=== PATIENT | female | born 1955 | race Caucasian/White ===

== ENCOUNTER → 2023-09-16 | Outpatient (CLI) | payer MEDICARE, OTHER, SELFPAY ==
--- OUTSIDE RECORDS SUMMARY | 2023-09-16 07:27 | XMS RPT_ITS | CCD ---
Author Name Unknown Address [id number] [place] [address] Organization [facility] Care Team Providers Care Newspaper Vendor Name Role Phone Jose Alejandro Unavailable Unavailable PROVIDER, UNKNOWN Unavailable Unavailable Zarrabi, Naa Unavailable Unavailable Adonay Machadoanak Primary Care Provider [phone] Rosa Machadok Primary Care Provider Khaitan, Kellen Unavailable Unavailable Zarrabi, Naa Unavailable Unavailable Zarrabi, Naa Unavailable Unavailable Khaitan, Kellen Unavailable Unavailable Farrier, Lary L Unavailable Unavailable Farrier, Lary Unavailable Unavailable Zarrabi, Naa Unavailable Unavailable Guardado, Marbella Unavailable Unavailable Zarrabi, Naa Unavailable Unavailable Patricia Wylie Primary Care Provider Adonay Machadoanak Primary Care Provider Adonay Machadoanak Primary Care Provider [phone] Zoierrabi Naa Unavailable Unavailable Unavailable Unavailable Unavailable Jax Boyd MD Primary Care Provider Naa Machado MD Primary Care Provider Naa Machado MD Unavailable [phone] Nadir PINZON, Carmen Unavailable Unavailable MD NAA MACHADO Primary Care Unavailable MD NAA MACHADO Attending Unavailable MD NAA MACHADO Referring Unavailable MD NAA MACHADO Primary Care Unavailable MD NAA MACHADO Attending Unavailable ZARRABI, MD JACOME Referring Unavailable ZARRABI, MD JACOME Primary Care Unavailable ZARRABI, MD JACOME Attending Unavailable ZARRABI, MD JACOME Referring Unavailable ZARRABI, MD JACOME Primary Care Unavailable ZARRABI, MD JACOME Attending Unavailable ZARRABI, MD JACOME Referring Unavailable ZARRABI, MD JACOME Primary Care Unavailable ZARRABI, MD JACOME Attending Unavailable ZARRABI, MD JACOME Referring Unavailable ZARRABI, MD JACOME Attending Unavailable ZARRABI, MD JACOME Referring Unavailable ZARRABI, MD JACOME Primary Care Unavailable ZARRABI, MD JACOME Attending Unavailable ZARRABI, MD JACOME Referring Unavailable ZARRABI, MD JACOME Primary Care Unavailable ZARRABI, MD JACOME Attending Unavailable ZARRABI, MD JACOME Referring Unavailable ZARRABI, MD JACOME Primary Care Unavailable KHAITAN, MD FOREMAN Attending Unavailable ZARRABI, MD JACOME Primary Care Unavailable KHAITAN, MD FOREMAN Attending Unavailable ZARRABI, MD JACOME Primary Care Unavailable ZARRABI, MD JACOME Primary Care Unavailable ZARRABI, MD JACOME Attending Unavailable ZARRABI, MD JACOME Referring Unavailable Zarrabi, Dr. Jacome Primary Care Unavailable Khaitan, Dr. Foreman Attending Unavailable ZARRABI, NAA Primary Care Unavailable Zarrabi, Dr. Jacome Referring Unavailable Zarrabi, Dr. Jacome Primary Care Unavailable Areli Arvizu Admitting Unavailable Areli Arvizu Attending Unavailable Zarrabi, Dr. Jacome Attending Unavailable Zarrabi, Dr. Jacome Primary Care Unavailable Zarrabi, Dr. Jacome Primary Care Unavailable Zarrabi, Dr. Jacome Attending Unavailable Zarrabi, Dr. Jacome Attending Unavailable Zarrabi, Dr. Jacome Referring Unavailable Zarrabi, Dr. Jacome Primary Care Unavailable JAX BOYD Primary Care Unavailable DMITRIY MORRISON Referring Unavaila ble DMITRIY MORRISON Attending Unavaila ble DMITRIY MORRISON Referring Unavaila JAX Puentes Primary Care Unavailable DMITRIY MORRISON Attending Unavaila ble DMITRIY MORRISON Admitting Unavaila ble MALU, JAX GERALDO Primary Care Unavailable ZARRABI, NAA Attending Unavailable ZARRABI, NAA Primary Care Unavailable ZARRABI, NAA Attending Unavailable ZARRABI, NAA Primary Care Unavailable ZARRABI, NAA Attending Unavailable ZARRABI, NAA Referring Unavailable ZARRABI, NAA Primary Care Unavailable ZARRABI, NAA Attending Unavailable ZARRABI, NAA Primary Care Unavailable ZARRABI, NAA Attending Unavailable ZARRABI, NAA Primary Care Unavailable MALU, JAX GERALDO Primary Care Unavailable DMITRIY MORRISON Admitting Unavaila ble DMITRIY MORRISON Referring Unavaila ble MALU, JAX GERALDO Primary Care Unavailable DMITRIY MORRISON Attending Unavaila ble MALU, JAX GERALDO Primary Care Unavailable DMITRIY MORRISON Attending Unavaila ble MARIA GUADALUPE EUGENE Attending Unavailable MALU, JAX GERALDO Primary Care Unavailable ZARRABI, NAA Admitting Unavailable ZARRABI, NAA Referring Unavailable MALU, JAX GERALDO Primary Care Unavailable DMITRIY MORRISON Attending Unavaila ble MALU, JAX GERALDO Primary Care Unavailable DMITRIY MORRISON Attending Unavaila ble TAVALLDANIIEMEARELI M Attending Unavailable ZARRABI, NAA Referring Unavailable ZARRABI, NAA Primary Care Unavailable TAVALLAEE ARELI M Attending Unavailable TAVALLAEE, ARELI M Referring Unavailable ZARRABI, NAA Primary Care Unavailable ZARRABI, NAA Referring Unavailable ZARRABI, NAA Primary Care Unavailable ZARRABI, NAA Referring Unavailable ZARRABI, NAA Primary Care Unavailable ZARRABI, NAA Referring Unavailable ZARRABI, NAA Primary Care Unavailable Allergies Allergy Classification Reported Allergen(s) Allergy Type Date of Onset Reaction(s) Facility Dairy (not specified as lactose intolerance) (2 sources) cow milk Food Allergy Nausea [facility] Work Phone: Mold Extract (2 sources) Mold Extract Drug Allergy Other [facility] Work Phone: Whey Proteins (2 sources) Whey Proteins Drug Allergy Hives [facility] Work Phone: (5 sources) Lactase / Lactobacillus acidophilus Drug Allergy 9 [place], [place] (5 sources) Seasonal allergy Propensity to adverse reactions to substance 9 [place], [place] (20 sources) Whey Proteins; Translations: [WHEY] Drug Allergy 9 Rash, Hives [place], [place] (20 sources) Mold Extract; Translations: [MOLD] Drug Allergy 3 Runny nose, Other (See Comments) [facility] Work Phone: (20 sources) Whey allergy to substance Hives [facility] DO Work Phone: (20 sources) cow milk; Translations: [MILK] Propensity to adverse reactions to food (disorder) [address] [facility] (3 sources) Seasonal allergy Propensity to adverse reactions 3 Itching [facility] (2 sources) Whey Propensity to adverse reactions to drug 9 [place], [place] (2 sources) Lactase; Translations: [Dairy Ease] Drug Allergy Abdominal pain, Diarrhea [facility] Work Phone: (12 sources) cow milk allergenic extract Drug Allergy 3 Nausea Only, Nausea and vomiting [facility] (10 sources) Pollen; Translations: [POLLEN EXTRACTS] Propensity to adverse reactions to drug 3 Other (See Comments) [facility] Medications Current Medications Medication Drug Class(es) Dates Sig (Normalized) Sig (Original) amLODIPine 5 mg oral tablet (20 sources) Dihydropyridine Calcium Channel Mauro Start: 07-03-2023 take 1 tablet by mouth once daily amLODIPine (Norvasc) 5 mg tablet Indications: Benign essential HTN Take 1 tablet by mouth once daily 90 tablet 3 07/03/2023 Active Completed/Discontinued Medications Medication Drug Class(es) Dates Sig (Normalized) Sig (Original) aspirin 81 mg delayed release oral tablet (20 sources) Platelet Aggregation Inhibitor, Nonsteroidal Anti-inflammatory Drug End: 06-28-2022 take 1 tablet by mouth once daily Aspirin EC Low Dose 81 MG Oral Tablet Delayed Release TAKE 1 TABLET DAILY. Quantity: 0 Refills: 0 Ordered: 28-Jun-2022 DO End : 28-Jun-2022 Complete Problems Active Problems Problem Classification Problem Date Documented Da te Episodic/Chronic Acquired foot deformities (18 sources) Hammer toe; Translations: [Other hammer toe(s) (acquired), right foot] Onset: 3 04-11-2023 Chronic Acquired foot deformities (5 sources) Bunion; Translations: [Bunion of right foot] Onset: 3 06-20-2023 Episodic Administrative/social admission (14 sources) Advance directive discussed with patient; Translations: [Other specified counseling] Episodic Allergic reactions (2 sources) Food allergy; Translations: [Allergy to other foods] Episodic Anal and rectal conditions (2 sources) Rectal pain; Translations: [Anal or rectal pain] Episodic Asthma (20 sources) Asthma; Translations: [Asthma, unspecified type, unspecified] Onset: 3 08-20-2022 Chronic Biliary tract disease (4 sources) Calculus of gallbladder without cholecystitis without obstruction; Translations: [Calculus of gallbladder with chronic cholecystitis without obstruction] Onset: 3 Episodic Cancer; other and unspecified primary (20 sources) Personal history of malignant neoplasm of other organs and systems; Translations: [History of squamous cell carcinoma] Episodic Complications of surgical procedures or medical care (1 source) Post-surgical malabsorption; Translations: [Other and unspecified postsurgical nonabsorption] Chronic Disorders of lipid metabolism (20 sources) Hyperlipidemia; Translations: [Other and unspecified hyperlipidemia] Onset: 3 08-20-2022 Chronic Esophageal disorders (20 sources) Gastro-esophageal reflux disease with esophagitis; Translations: [Gastroesophageal reflux disease] Onset: 2 Resolved: 0 05-12-2013 Chronic Esophageal disorders (10 sources) Esophagitis; Translations: [Esophagitis, unspecified] Episodic Essential hypertension (20 sources) Hypertensive disorder; Translations: [Benign essential hypertension] Onset: 2 10-18-2022 Chronic Gastritis and duodenitis (20 sources) Chronic gastritis; Translations: [Atrophic gastritis, without mention of hemorrhage] Onset: 3 10-18-2022 Chronic Gastritis and duodenitis (17 sources) Gastritis; Translations: [Unspecified gastritis and gastroduodenitis, without mention of hemorrhage] Episodic Genitourinary symptoms and ill-defined conditions (2 sources) Increased frequency of urination; Translations: [Urinary frequency] Episodic Immunizations and screening for infectious disease (1 source) Encounter for immunization; Translations: [Encounter for immunization] Onset: 3 Episodic Malaise and fatigue (2 sources) Fatigue; Translations: [Chronic fatigue, unspecified] 10-18-2022 Chronic Mycoses (1 source) Candidiasis of mouth; Translations: [Thrush, oral] Episodic Noninfectious gastroenteritis (20 sources) Chronic diarrhea; Translations: [Diarrhea] Onset: 3 Resolved: 3 10-18-2022 Episodic Nutritional deficiencies (10 sources) Iron deficiency; Translations: [Iron deficiency anemia, unspecified] Episodic Osteoarthritis (20 sources) Primary osteoarthritis of ankle; Translations: [Osteoarthrosis, localized, primary, ankle and foot] Onset: 3 08-20-2022 Chronic Other acquired deformities (1 source) Spondylolisthesis, grade 1; Translations: [Acquired spondylolisthesis] Episodic Other aftercare (1 source) Other meterman (current) drug therapy; Translations: [Other meterman (current) drug therapy] Onset: 3 Episodic Other connective tissue disease (14 sources) Spasm; Translations: [Spasm of muscle] Episodic Other connective tissue disease (15 sources) Foot pain; Translations: [Pain in limb] Episodic Other connective tissue disease (1 source) Trigger finger, unspecified finger; Translations: [Trigger finger, unspecified finger] Onset: 3 Episodic Other connective tissue disease (1 source) Trigger finger, right middle finger; Translations: [Trigger finger, right middle finger] Onset: 3 Episodic Other ear and sense organ disorders (1 source) Ear pressure sensation; Translations: [Pressure sensation in both ears] Episodic Other endocrine disorders (1 source) Reactive hypoglycemia; 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] Chronic Other endocrine disorders (5 sources) Hypoglycemia; Translations: [Hypoglycemia] Chronic Other gastrointestinal disorders (7 sources) Irritable bowel syndrome; Translations: [Mixed irritable bowel syndrome] Onset: 3 09-24-2022 Chronic Other gastrointestinal disorders (20 sources) History of bariatric surgical procedure; Translations: [Bariatric surgery status] Onset: 3 10-18-2022 Episodic Other gastrointestinal disorders (4 sources) Dysphagia; Translations: [Dysphagia] Episodic Other gastrointestinal disorders (3 sources) H/O: gastrointestinal disease; Translations: [History of dysphagia] Episodic Other gastrointestinal disorders (20 sources) Chronic constipation; Translations: [Constipation, unspecified] Episodic Other gastrointestinal disorders (6 sources) History of lower gastrointestinal bleed; Translations: [Personal history of other diseases of digestive system] Episodic Other gastrointestinal disorders (1 source) Dysphagia, unspecified; Translations: [Dysphagia, unspecified] Onset: 3 Episodic Other hereditary and degenerative nervous system conditions (6 sources) Idiopathic peripheral autonomic neuropathy; Translations: [Other idiopathic peripheral autonomic neuropathy] Onset: 3 04-11-2023 Chronic Other hereditary and degenerative nervous system conditions (3 sources) Other idiopathic peripheral autonomic neuropathy; Translations: [Other idiopathic peripheral autonomic neuropathy] Onset: 3 Chronic Other inflammatory condition of skin (2 sources) Pruritus ani; Translations: [Pruritus ani] Episodic Other injuries and conditions due to external causes (1 source) H/O: injury; Translations: [Personal history of other (healed) physical injury and trauma] 04-18-2023 Episodic Other liver diseases (20 sources) Steatosis of liver; Translations: [Other chronic nonalcoholic liver disease] Onset: 3 08-20-2022 Chronic Other liver diseases (1 source) Fatty (change of) liver, not elsewhere classified; Translations: [Fatty (change of) liver, not elsewhere classified] Onset: 3 Chronic Other lower respiratory disease (5 sources) Cough; Translations: [Cough] Episodic Other lower respiratory disease (3 sources) Dyspnea on exertion; Translations: [Shortness of breath] Episodic Other nervous system disorders (2 sources) Polyneuropathy, unspecified; Translations: [Polyneuropathy, unspecified] Onset: 8 Chronic Other nervous system disorders (20 sources) Mononeuropathy of lower limb; Translations: [Other mononeuritis of lower limb] Onset: 3 08-20-2022 Chronic Other nervous system disorders (20 sources) Numbness; Translations: [Disturbance of skin sensation] 10-22-2022 Episodic Other nervous system disorders (15 sources) Numbness of foot ; Translations: [Disturbance of skin sensation] Episodic Other nutritional; endocrine; and metabolic disorders (20 sources) Disorder of carbohydrate metabolism; 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] Onset: 3 08-20-2022 Chronic Other nutritional; endocrine; and metabolic disorders (20 sources) Obesity; Translations: [Obesity, unspecified] Chronic Other nutritional; endocrine; and metabolic disorders (1 source) Obesity, unspecified; Translations: [Obesity, unspecified] Onset: 3 Chronic Other nutritional; endocrine; and metabolic disorders (1 source) Body mass index (BMI) 30.0-30.9, adult; Translations: [Body mass index [BMI] 30.0-30.9, adult] Onset: 3 Chronic Other nutritional; endocrine; and metabolic disorders (2 sources) Other disorders of intestinal carbohydrate absorption; Translations: [Other disorders of intestinal carbohydrate absorption] Onset: 3 Chronic Other nutritional; endocrine; and metabolic disorders (1 source) Difficulty chewing; Translations: [Chewing difficulty] Episodic Other nutritional; endocrine; and metabolic disorders (2 sources) Decrease in appetite; Translations: [Anorexia] 06-20-2023 Episodic Other nutritional; endocrine; and metabolic disorders (4 sources) Anorexia; Translations: [Anorexia] Onset: 3 Episodic Other upper respiratory disease (4 sources) Allergic rhinitis; Translations: [Allergic rhinitis, unspecified] 05-12-2013 Chronic Other upper respiratory disease (3 sources) Rhinitis; Translations: [Chronic rhinitis] Chronic Other upper respiratory disease (8 sources) Nasal congestion; Translations: [Other disease of nasal cavity and sinuses] Episodic Residual codes; unclassified (5 sources) H/O: surgery; Translations: [S/P laparoscopic sleeve gastrectomy] Episodic Residual codes; unclassified (20 sources) Postmenopausal state; Translations: [Asymptomatic postmenopausal status (age-related) (natural)] 04-18-2023 Episodic Residual codes; unclassified (5 sources) Acquired absence of other specified parts of digestive tract; Translations: [Acquired absence of other specified parts of digestive tract] Onset: 2 Episodic Residual codes; unclassified (5 sources) Asymptomatic menopausal state; Translations: [Asymptomatic menopausal state] Onset: 2 Episodic Screening and history of mental health and substance abuse codes (20 sources) Screening - NAD; Translations: [Screening for depression] Onset: 3 Episodic Spondylosis; intervertebral disc disorders; other back problems (15 sources) Radiculopathy, lumbar region; Translations: [Radiculopathy, lumbosacral region] Onset: 8 04-11-2023 Episodic Thyroid disorders (20 sources) Non-toxic multinodular goiter; Translations: [Thyroid nodule] Onset: 3 08-20-2022 Chronic Unclassified (2 sources) History of COVID-19; Translations: [History of COVID-19] Onset: 3 08-20-2022 Unclassified (1 source) Contact with and (suspected) exposure to COVID-19; Translations: [Contact with and (suspected) exposure to COVID-19] Onset: 3 Unclassified (1 source) Gastro-esophageal reflux dis with esophagitis, without bleed; Translations: [Gastro-esophageal reflux dis with esophagitis, without bleed] Onset: 3 Urinary tract infections (5 sources) Acute cystitis; Translations: [Acute cystitis] Episodic Viral infection (3 sources) Disease caused by 2019-nCoV; Translations: [Other specified viral infection] Episodic Past or Other Problems Problem Classification Problem Date Documented Da te Episodic/Chronic Abdominal hernia (20 sources) Hiatal hernia; Translations: [Diaphragmatic hernia without mention of obstruction or gangrene] Onset: 08-20-2022 08-20-2022 Episodic Abdominal pain (20 sources) Left lower quadrant pain; Translations: [Abdominal pain, left lower quadrant] Onset: 05-03-2022 08-20-2022 Episodic Administrative/social admission (7 sources) Patient entered into trial; Translations: [Research study patient] Anxiety disorders (20 sources) Anxiety state; Translations: [Anxiety state, unspecified] Onset: 08-20-2022 Resolved: 04-18-2023 08-20-2022 Chronic Deficiency and other anemia (20 sources) Anemia; Translations: [Anemia, unspecified] Onset: 08-20-2022 08-20-2022 Episodic Deficiency and other anemia (19 sources) Iron deficiency anemia; Translations: [Iron deficiency anemia, unspecified] Onset: 08-20-2022 08-20-2022 Episodic Diabetes mellitus without complication (10 sources) Impaired fasting glycemia; Translations: [Impaired fasting glucose] Onset: 11-22-2022 11-22-2022 Episodic Gastrointestinal hemorrhage (14 sources) Hematochezia; Translations: [Blood in stool] Onset: 06-21-2022 Resolved: 10-18-2022 10-18-2022 Episodic Headache; including migraine (20 sources) Headache; Translations: [Headache] Onset: 08-20-2022 08-20-2022 Episodic Hemorrhoids (13 sources) Internal hemorrhoids; Translations: [Internal hemorrhoids without mention of complication] Onset: 06-21-2022 09-24-2022 Episodic Malaise and fatigue (20 sources) Fatigue; Translations: [Other malaise and fatigue] Onset: 08-20-2022 08-20-2022 Episodic Other connective tissue disease (20 sources) Triggering of digit; Translations: [Trigger finger (acquired)] Onset: 08-20-2022 08-20-2022 Episodic Other connective tissue disease (6 sources) Pain in both feet; Translations: [Pain in right foot] Onset: 08-20-2022 08-20-2022 Episodic Other connective tissue disease (2 sources) Pain in right foot; Translations: [Pain in right foot] Onset: 04-11-2023 Episodic Other connective tissue disease (2 sources) Pain in left foot; Translations: [Pain in left foot] Onset: 04-11-2023 Episodic Other eye disorders (20 sources) Excessive tear production; Translations: [Epiphora, unspecified as to cause] Onset: 08-20-2022 Resolved: 10-18-2022 10-18-2022 Episodic Other gastrointestinal disorders (20 sources) Irritable bowel syndrome with diarrhea; Translations: [Irritable bowel syndrome] Onset: 08-20-2022 Resolved: 09-24-2022 09-24-2022 Chronic Other gastrointestinal disorders (20 sources) Abdominal bloating; Translations: [Flatulence, eructation, and gas pain] Onset: 08-20-2022 Resolved: 11-22-2022 10-18-2022 Episodic Other gastrointestinal disorders (20 sources) Personal history of other diseases of the digestive system; Translations: [History of dysphagia] Resolved: 09-07-2019 Episodic Other gastrointestinal disorders (5 sources) Bariatric surgery status; Translations: [Bariatric surgery status] Onset: 06-21-2022 Episodic Other gastrointestinal disorders (2 sources) Diarrhea, unspecified; Translations: [Diarrhea, unspecified] Onset: 06-21-2022 Episodic Other gastrointestinal disorders (2 sources) Abdominal distension (gaseous); Translations: [Abdominal distension (gaseous)] Onset: 08-20-2022 Episodic Other gastrointestinal disorders (2 sources) Constipation, unspecified; Translations: [Constipation, unspecified] Onset: 09-24-2022 Episodic Other hematologic conditions (20 sources) Microcytosis; Translations: [Other abnormality of red blood cells] Onset: 08-20-2022 08-20-2022 Episodic Other infections; including parasitic (20 sources) Personal history of other infectious and parasitic diseases; Translations: [History of COVID-19] Onset: 08-20-2022 08-20-2022 Episodic Other injuries and conditions due to external causes (4 sources) Personal history of other (healed) physical injury and trauma; Translations: [Personal history of other (healed) physical injury and trauma] Onset: 04-18-2023 Episodic Other nervous system disorders (20 sources) Carpal tunnel syndrome; Translations: [Carpal tunnel syndrome] Resolved: 10-16-2019 Chronic Other nervous system disorders (7 sources) Paresthesia of foot ; Translations: [Anesthesia of skin] Onset: 08-20-2022 Episodic Other nervous system disorders (4 sources) Anesthesia of skin; Translations: [Anesthesia of skin] Onset: 09-24-2022 Episodic Other nervous system disorders (2 sources) Paresthesia of skin; Translations: [Paresthesia of skin] Onset: 09-24-2022 Episodic Other non-traumatic joint disorders (20 sources) Finger joint stiff; Translations: [Stiffness of joint, not elsewhere classified, hand] Onset: 08-20-2022 08-20-2022 Episodic Other non-traumatic joint disorders (5 sources) Pain in elbow; Translations: [Pain in left elbow] Onset: 04-18-2023 04-18-2023 Episodic Other non-traumatic joint disorders (4 sources) Pain in left elbow; Translations: [Pain in left elbow] Onset: 04-18-2023 Episodic Other nutritional; endocrine; and metabolic disorders (20 sources) Hypoproteinemia; Translations: [Other disorders of plasma protein metabolism] Onset: 08-20-2022 Resolved: 09-24-2022 09-24-2022 Chronic Other nutritional; endocrine; and metabolic disorders (20 sources) H/O: endocrine disorder; Translations: [Personal history of other endocrine, metabolic, and immunity disorders] Onset: 08-20-2022 Resolved: 10-21-2019 08-20-2022 Episodic Other nutritional; endocrine; and metabolic disorders (20 sources) Weight loss; Translations: [Loss of weight] Onset: 08-20-2022 08-20-2022 Episodic Other screening for suspected conditions (not mental disorders or infectious disease) (20 sources) Patient encounter status; Translations: [Breast screening, unspecified] Onset: 05-11-2022 04-18-2023 Episodic Residual codes; unclassified (20 sources) Past history of procedure; Translations: [Other specified personal history presenting hazards to health] Onset: 01-31-2018 Episodic Results Test Name Value Interpretation Reference Range Facil ity Vital Signs Date Time Vital Sign Value Performing Clinician Facility 08-02-2023 11:05-0500 Diastolic blood pressure 76 mm[Hg] [address] 08-02-2023 11:05-0500 Heart rate 62 /min [address] 08-02-2023 11:05-0500 Respiratory rate 20 /min [address] 08-02-2023 11:05-0500 SaO2% (BldA) [Mass fraction] 100 % [address] 08-02-2023 11:05-0500 Systolic blood pressure 124 mm[Hg] [address] 08-02-2023 10:18-0500 Body temperature 97.59 [degF] [address] 08-02-2023 09:22-0500 Body height [address] 08-02-2023 09:22-0500 Body mass index (BMI) [Ratio] 28.12 kg/m2 [address] 08-02-2023 09:22-0500 Body weight 74.7 kg [facility] 04 [facility] 08-01-2023 12:55-0500 Diastolic blood pressure 72 mm[Hg] Areli Arvizu MD Work Phone: [facility] 08-01-2023 12:55-0500 Heart rate 62 /min Areli Arvizu MD Work Phone: [facility] 08-01-2023 12:55-0500 Respiratory rate 16 /min Areli Arvizu MD Work Phone: [facility] 08-01-2023 12:55-0500 SaO2% (BldA) [Mass fraction] 96 % Areli Arvizu MD Work Phone: [facility] 08-01-2023 12:55-0500 Systolic blood pressure 116 mm[Hg] Areli Arvizu MD Work Phone: [facility] 08-01-2023 12:10-0500 Body temperature 97.5 [degF] Areli Arvizu MD Work Phone: [facility] 08-01-2023 10:41-0500 Body height 162.2 cm Areli Arvizu MD Work Phone: [facility] 08-01-2023 10:41-0500 Body mass index (BMI) [Ratio] 27.75 kg/m2 Areli Arvizu MD Work Phone: [facility] 08-01-2023 10:41-0500 Body weight 73 kg Areli Arvizu MD Work Phone: [facility] 07-25-2023 08:41-0500 Body temperature 98.2 [degF] Dmitriy Morrison DPM Work Phone: [facility] 07-25-2023 08:41-0500 Diastolic blood pressure 83 mm[Hg] Dmitriy Morrison DPM Work Phone: [facility] 07-25-2023 08:41-0500 Heart rate 98 /min Dmitriy Morrison DPM Work Phone: [facility] 07-25-2023 08:41-0500 Systolic blood pressure 122 mm[Hg] Dmitriy Morrison DPM Work Phone: [facility] 06-20-2023 10:27-0500 Body temperature 97.9 [degF] Dmitriy Morrison DPM Work Phone: [facility] 06-20-2023 10:27-0500 Diastolic blood pressure 78 mm[Hg] Dmitriy Morrison DPM Work Phone: [facility] 06-20-2023 10:27-0500 Heart rate 62 /min Dmitriy Morrison DPM Work Phone: [facility] 06-20-2023 10:27-0500 Systolic blood pressure 123 mm[Hg] Dmitriy Morrison DPM Work Phone: [facility] 06-20-2023 09:08-0500 Body height 160 cm Naa Machdao MD Work Phone: [facility] 06-20-2023 09:08-0500 Body mass index (BMI) [Ratio] 29.23 kg/m2 Naa Machado MD Work Phone: [facility] 06-20-2023 09:08-0500 Body weight 74.84 kg Naa Machado MD Work Phone: [facility] 06-20-2023 09:08-0500 Diastolic blood pressure 72 mm[Hg] Naa Machado MD Work Phone: [facility] 06-20-2023 09:08-0500 Heart rate 60 /min Naa Machado MD Work Phone: [facility] 06-20-2023 09:08-0500 Systolic blood pressure 124 mm[Hg] Naa Machado MD Work Phone: [facility] 05-09-2023 09:45-0400 Diastolic blood pressure 82 mm[Hg] Dmitriy Morrison DPM Work Phone: [facility] 05-09-2023 09:45-0400 Heart rate 59 /min Dmitriy Morrison DPM Work Phone: [facility] 05-09-2023 09:45-0400 Systolic blood pressure 132 mm[Hg] Dmitriy Morrison DPM Work Phone: [facility] 05-09-2023 09:42-0400 Body temperature 98.1 [degF] Dmitriy Morrison DPM Work Phone: [facility] 04-18-2023 08:05-0400 Body height 160 cm Naa Machado MD Work Phone: [facility] 04-18-2023 08:05-0400 Body mass index (BMI) [Ratio] 29.41 kg/m2 Naa Machado MD Work Phone: [facility] 04-18-2023 08:05-0400 Body weight 75.3 kg Naa Machado MD Work Phone: [facility] 04-18-2023 08:05-0400 Diastolic blood pressure 80 mm[Hg] Naa Machado MD Work Phone: [facility] 04-18-2023 08:05-0400 Heart rate 66 /min Naa Machado MD Work Phone: [facility] 04-18-2023 08:05-0400 SaO2% (BldA) [Mass fraction] 97 % Naa Machado MD Work Phone: [facility] 04-18-2023 08:05-0400 Systolic blood pressure 120 mm[Hg] Naa Machado MD Work Phone: [facility] 04-11-2023 09:32-0400 Body temperature 97.7 [degF] Dmitriy Morrison DPM Work Phone: [facility] 04-11-2023 09:32-0400 Diastolic blood pressure 88 mm[Hg] Dmitriy Morrison DPM Work Phone: [facility] 04-11-2023 09:32-0400 Heart rate 75 /min Dmitriy Morrison DPM Work Phone: [facility] 04-11-2023 09:32-0400 Systolic blood pressure 133 mm[Hg] Dmitriy Morrison DPM Work Phone: [facility] 11-22-2022 08:10-0400 Body height 160 cm Naa Machado MD Work Phone: [facility] 11-22-2022 08:10-0400 Body mass index (BMI) [Ratio] 30.29 kg/m2 Naa Machado MD Work Phone: [facility] 11-22-2022 08:10-0400 Body weight 77.56 kg Naa Machado MD Work Phone: [facility] 11-22-2022 08:10-0400 Diastolic blood pressure 80 mm[Hg] Naa Machado MD Work Phone: [facility] 11-22-2022 08:10-0400 Heart rate 64 /min Naa Machado MD Work Phone: [facility] 11-22-2022 08:10-0400 Systolic blood pressure 122 mm[Hg] Naa Machado MD Work Phone: [facility] 10-18-2022 08:21-0400 Body height 160 cm Naa Machado MD Work Phone: [facility] 10-18-2022 08:21-0400 Body mass index (BMI) [Ratio] 31.18 kg/m2 Naa Machado MD Work Phone: [facility] 10-18-2022 08:21-0400 Body weight 79.83 kg Naa Machado MD Work Phone: [facility] 10-18-2022 08:21-0400 Diastolic blood pressure 68 mm[Hg] Naa Machado MD Work Phone: [facility] 10-18-2022 08:21-0400 Heart rate 73 /min Naa Machado MD Work Phone: [facility] 10-18-2022 08:21-0400 SaO2% (BldA) [Mass fraction] 98 % Naa Machado MD Work Phone: [facility] 10-18-2022 08:21-0400 Systolic blood pressure 112 mm[Hg] Naa Machado MD Work Phone: [facility] 08-23-2022 10:56-0500 Body height 160.02 cm Naa Machado Work Phone: [facility] Work Phone: 08-23-2022 10:56-0500 Body mass index (BMI) [Ratio] 31.35 kg/m2 Naa Machado Work Phone: [facility] Work Phone: 08-23-2022 10:56-0500 Body surface area Derived from formula 1.84 m2 Naa Machado Work Phone: [facility] Work Phone: 08-23-2022 10:56-0500 Body weight 80.29 kg Naaskye Machado Work Phone: [facility] Work Phone: 08-23-2022 10:56-0500 Diastolic blood pressure 68 mm[Hg] Naa Machado Work Phone: [facility] Work Phone: 08-23-2022 10:56-0500 Heart rate 60 /min Naa Machado Work Phone: [facility] Work Phone: 08-23-2022 10:56-0500 SaO2% (BldA) [Mass fraction] 98 % Naa Machado Work Phone: [facility] Work Phone: 08-23-2022 10:56-0500 Systolic blood pressure 120 mm[Hg] Naa Machado Work Phone: [facility] Work Phone: 06-28-2022 08:54-0500 Body height 160.02 cm Naa Machado Work Phone: [facility] Work Phone: 06-28-2022 08:54-0500 Body mass index (BMI) [Ratio] 31.89 kg/m2 Naa Machado Work Phone: [facility] Work Phone: 06-28-2022 08:54-0500 Body surface area Derived from formula 1.85 m2 Naa Machado Work Phone: [facility] Work Phone: 06-28-2022 08:54-0500 Body weight 81.65 kg Naa Machado Work Phone: [facility] Work Phone: 06-28-2022 08:54-0500 Diastolic blood pressure 82 mm[Hg] Naa Fraserabi Work Phone: [facility] Work Phone: 06-28-2022 08:54-0500 Diastolic blood pressure 80 mm[Hg] Naa Fraserabi Work Phone: [facility] Work Phone: 06-28-2022 08:54-0500 Heart rate 68 /min Naa Fraserabi Work Phone: [facility] Work Phone: 06-28-2022 08:54-0500 Systolic blood pressure 132 mm[Hg] Naa Linorrabi Work Phone: [facility] Work Phone: 06-28-2022 08:54-0500 Systolic blood pressure 130 mm[Hg] Naa Zarrabi Work Phone: [facility] Work Phone: 05-28-2022 08:56-0500 Body height 160.02 cm Naa Fraserabi Work Phone: [facility] Work Phone: 05-28-2022 08:56-0500 Body mass index (BMI) [Ratio] 31.71 kg/m2 Naa Linorrabi Work Phone: [facility] Work Phone: 05-28-2022 08:56-0500 Body surface area Derived from formula 1.84 m2 Naa Fraserabi Work Phone: [facility] Work Phone: 05-28-2022 08:56-0500 Body weight 81.19 kg Naa Fraserabi Work Phone: [facility] Work Phone: 05-28-2022 08:56-0500 Diastolic blood pressure 80 mm[Hg] Naa Zarrabi Work Phone: [facility] Work Phone: 05-28-2022 08:56-0500 Systolic blood pressure 129 mm[Hg] Naa Zarrabi Work Phone: [facility] Work Phone: 05-17-2022 08:40-0400 Body height 160.02 cm Naa Linorrabi Work Phone: [facility] Work Phone: 05-17-2022 08:40-0400 Body mass index (BMI) [Ratio] 31.71 kg/m2 Naa Fraserabi Work Phone: [facility] Work Phone: 05-17-2022 08:40-0400 Body surface area Derived from formula 1.84 m2 Naa Zarrabi Work Phone: [facility] Work Phone: 05-17-2022 08:40-0400 Body weight 81.19 kg Naacate Machado Work Phone: [facility] Work Phone: 05-17-2022 08:40-0400 Diastolic blood pressure 80 mm[Hg] Naa Fraserabi Work Phone: [facility] Work Phone: 05-17-2022 08:40-0400 Heart rate 64 /min Naacate Machado Work Phone: [facility] Work Phone: 05-17-2022 08:40-0400 Systolic blood pressure 138 mm[Hg] Naa Machado Work Phone: [facility] Work Phone: 04-26-2022 08:48-0400 Body height 160.02 cm Naa Machado Work Phone: [facility] Work Phone: 04-26-2022 08:48-0400 Body mass index (BMI) [Ratio] 31.89 kg/m2 Naa Fraserabi Work Phone: [facility] Work Phone: 04-26-2022 08:48-0400 Body surface area Derived from formula 1.85 m2 Naa Fraserabi Work Phone: [facility] Work Phone: 04-26-2022 08:48-0400 Body weight 81.64 kg Naa Fraserabi Work Phone: [facility] Work Phone: 04-26-2022 08:48-0400 Diastolic blood pressure 82 mm[Hg] Naa Fraserabi Work Phone: [facility] Work Phone: 04-26-2022 08:48-0400 Heart rate 64 /min Naa Fraserabi Work Phone: [facility] Work Phone: 04-26-2022 08:48-0400 Systolic blood pressure 138 mm[Hg] Naa Fraserabi Work Phone: [facility] Work Phone: 03-15-2022 08:21-0400 Body height 160.02 cm Naa Machado Work Phone: [facility] Work Phone: 03-15-2022 08:21-0400 Body mass index (BMI) [Ratio] 32.06 kg/m2 Naa Fraserabi Work Phone: [facility] Work Phone: 03-15-2022 08:21-0400 Body surface area Derived from formula 1.85 m2 Naa Fraserabi Work Phone: [facility] Work Phone: 03-15-2022 08:21-0400 Body weight 82.1 kg Naa Fraserabi Work Phone: [facility] Work Phone: 03-15-2022 08:21-0400 Diastolic blood pressure 80 mm[Hg] Naa Linorrabi Work Phone: [facility] Work Phone: 03-15-2022 08:21-0400 Heart rate 66 /min Naa Fraserabi Work Phone: [facility] Work Phone: 03-15-2022 08:21-0400 Systolic blood pressure 130 mm[Hg] Naa Machado Work Phone: [facility] Work Phone: 01-18-2022 08:01-0400 Body height 160.02 cm Naa Machado Work Phone: [facility] Work Phone: 01-18-2022 08:01-0400 Body mass index (BMI) [Ratio] 28.52 kg/m2 Naa Machado Work Phone: [facility] Work Phone: 01-18-2022 08:01-0400 Body surface area Derived from formula 1.76 m2 Naa Machado Work Phone: [facility] Work Phone: 01-18-2022 08:01-0400 Body weight 73.03 kg Naa Machado Work Phone: [facility] Work Phone: 01-18-2022 08:01-0400 Diastolic blood pressure 80 mm[Hg] Naa Machado Work Phone: [facility] Work Phone: 01-18-2022 08:01-0400 Heart rate 66 /min Naa Machado Work Phone: [facility] Work Phone: 01-18-2022 08:01-0400 Systolic blood pressure 114 mm[Hg] Naa Machado Work Phone: [facility] Work Phone: 09-07-2021 08:44-0500 Body height 160.02 cm Naa Machado Work Phone: [facility] Work Phone: 09-07-2021 08:44-0500 Body mass index (BMI) [Ratio] 31.63 kg/m2 Naa Fraserabi Work Phone: [facility] Work Phone: 09-07-2021 08:44-0500 Body surface area Derived from formula 1.84 m2 Naa Fraserabi Work Phone: [facility] Work Phone: 09-07-2021 08:44-0500 Body weight 80.99 kg Naa Machado Work Phone: [facility] Work Phone: 09-07-2021 08:44-0500 Diastolic blood pressure 80 mm[Hg] Naa Fraserabi Work Phone: [facility] Work Phone: 09-07-2021 08:44-0500 Heart rate 80 /min Naa Machado Work Phone: [facility] Work Phone: 09-07-2021 08:44-0500 Systolic blood pressure 130 mm[Hg] Naa Machado Work Phone: [facility] Work Phone: 08-24-2021 08:10-0500 Body height 160.02 cm Naa Machado Work Phone: [facility] Work Phone: 08-24-2021 08:10-0500 Body mass index (BMI) [Ratio] 31.35 kg/m2 Naa Fraserabi Work Phone: [facility] Work Phone: 08-24-2021 08:10-0500 Body surface area Derived from formula 1.84 m2 Naa Fraserabi Work Phone: [facility] Work Phone: 08-24-2021 08:10-0500 Body weight 80.28 kg Naa Machado Work Phone: [facility] Work Phone: 08-24-2021 08:10-0500 Diastolic blood pressure 86 mm[Hg] Naa Fraserabi Work Phone: [facility] Work Phone: 08-24-2021 08:10-0500 Heart rate 76 /min Naa Machado Work Phone: [facility] Work Phone: 08-24-2021 08:10-0500 Systolic blood pressure 128 mm[Hg] Naa Fraserabi Work Phone: [facility] Work Phone: 06-15-2021 08:04-0500 Body height 160.02 cm Naa Fraserabi Work Phone: [facility] Work Phone: 06-15-2021 08:04-0500 Body mass index (BMI) [Ratio] 30.65 kg/m2 Naa Fraserabi Work Phone: [facility] Work Phone: 06-15-2021 08:04-0500 Body surface area Derived from formula 1.82 m2 Naa Fraserabi Work Phone: [facility] Work Phone: 06-15-2021 08:04-0500 Body weight 78.47 kg Naa Fraserabi Work Phone: [facility] Work Phone: 06-15-2021 08:04-0500 Diastolic blood pressure 80 mm[Hg] Naa Fraserabi Work Phone: [facility] Work Phone: 06-15-2021 08:04-0500 Heart rate 80 /min Naa Machado Work Phone: [facility] Work Phone: 06-15-2021 08:04-0500 Systolic blood pressure 112 mm[Hg] Naa Machado Work Phone: [facility] Work Phone: 05-09-2021 09:36-0400 Diastolic blood pressure 74 mm[Hg] Naa Machado Work Phone: [facility] Work Phone: 05-09-2021 09:36-0400 SaO2% (BldA) [Mass fraction] 97 % Naa Machado Work Phone: [facility] Work Phone: 05-09-2021 09:36-0400 Systolic blood pressure 114 mm[Hg] Naa Machado Work Phone: [facility] Work Phone: 03-16-2021 08:20-0400 Body height 160.02 cm Naa Machado Work Phone: [facility] Work Phone: 03-16-2021 08:20-0400 Body mass index (BMI) [Ratio] 29.76 kg/m2 Naa Machado Work Phone: [facility] Work Phone: 03-16-2021 08:20-0400 Body surface area Derived from formula 1.8 m2 Naa Machado Work Phone: [facility] Work Phone: 03-16-2021 08:20-0400 Body weight 76.2 kg Naa Machado Work Phone: [facility] Work Phone: 03-16-2021 08:20-0400 Diastolic blood pressure 94 mm[Hg] Naa Fraserabi Work Phone: [facility] Work Phone: 03-16-2021 08:20-0400 Heart rate 60 /min Naa Fraserabi Work Phone: [facility] Work Phone: 03-16-2021 08:20-0400 Systolic blood pressure 128 mm[Hg] Naa Fraserabi Work Phone: [facility] Work Phone: 02-14-2021 08:08-0400 Body height 160.02 cm Naa Machado Work Phone: [facility] Work Phone: 02-14-2021 08:08-0400 Body mass index (BMI) [Ratio] 29.94 kg/m2 Naa Machado Work Phone: [facility] Work Phone: 02-14-2021 08:08-0400 Body surface area Derived from formula 1.8 m2 Naa Machado Work Phone: [facility] Work Phone: 02-14-2021 08:08-0400 Body weight 76.66 kg Naa Machado Work Phone: [facility] Work Phone: 02-14-2021 08:08-0400 Diastolic blood pressure 74 mm[Hg] Naa Fraserabi Work Phone: [facility] Work Phone: 02-14-2021 08:08-0400 Heart rate 64 /min Naa Fraserabi Work Phone: [facility] Work Phone: 02-14-2021 08:08-0400 Systolic blood pressure 110 mm[Hg] Naa Zarrabi Work Phone: [facility] Work Phone: 02-23-2020 10:49-0400 BMI (Body Mass Index) 31.08 kg/m2 Naaskye Machado [facility] Work Phone: 02-23-2020 10:49-0400 Body weight 79.58 kg Naaskye Machado [facility] Work Phone: 02-23-2020 10:49-0400 BP Diastolic 86 mm[Hg] Naa Machado [facility] Work Phone: Encounters Encounter Date Encounter Type Care Provider Facility Start: 08-02-2023 End: 08-03-2023 ambulatory ARELI ARVIZU [facility] Start: 08-02-2023 End: 08-02-2023 Subsequent hospital visit by physician Areli Arvizu MD Work Phone: [facility] OR Procedures Date Procedure Procedure Detail Performing Clinician Start: 08-02-2023 Esophagogastroduodenoscopy ARELI TAVAL LAEE Start: 08-02-2023 SURGICAL PATHOLOGY EXAM ARELI FELDMANALLAE E Start: 08-02-2023 PLACE IN OUTPATIENT/HOSPITAL AMBULATORY SURGERY ARELI TAVALLAEE Start: 08-02-2023 PULSE OXIMETRY, SPOT ARELI TAVALLAEE Start: 08-02-2023 Egd transoral biopsy single/multiple Areli Arvizu MD Work Phone: Start: 08-02-2023 PULSE OXIMETRY, SPOT Areli Arvizu MD Work Phone: Start: 08-01-2023 Esophagogastroduodenoscopy ARELI TAVAL LAEE Start: 08-01-2023 SURGICAL PATHOLOGY EXAM ARELI TAVALLAE E Start: 08-01-2023 PLACE IN OUTPATIENT/HOSPITAL AMBULATORY SURGERY ARELI TAVALLAEE Start: 08-01-2023 Colonoscopy w/biopsy single/multiple Naa Machado MD Work Phone: Start: 08-01-2023 Esophagogastroduodenoscopy transoral diagnostic Naa Machado MD Work Phone: Start: 08-01-2023 Colonoscopy Areli Arvizu MD Work Phone: Start: 05-24-2023 DEXA BONE DENSITY ARELI ARVIZU Start: 05-17-2023 BI MAMMO BILATERAL SCREENING TOMOSYNTHESIS ARELI ARVIZU Start: 05-17-2023 Mammography Dmitriy Morrison DPM Work Phone: Start: 04-30-2023 XR ELBOW LEFT 3+ VIEWS ARELI ARVIZU Start: 04-11-2023 Comprehensive metabolic 2000 panel - Serum or Plasma NAA MACHADO Start: 04-11-2023 Hemoglobin A1c/Hemoglobin.total in Blood NAA MACHADO Start: 04-11-2023 Magnesium [Mass/volume] in Serum or Plasma NAA MACHADO Start: 04-11-2023 TSH WITH REFLEX TO FREE T4 IF ABNORMAL NAA MACHADO Start: 11-02-2022 Antibody screen MD NAA MACHADO Plan of Treatment Date Care Activity Detail Author Start: 07-29-2033 Screening for malignant neoplasm of colon [facility] Start: 06-21-2032 Screening for malignant neoplasm of colon [facility] Start: 03-08-2032 Screening for malignant neoplasm of colon [facility] Start: 08-20-2028 DTaP/Tdap/Td Vaccines (2 - Td or Tdap) DTaP/Tdap/Td Vaccines (2 - Td or Tdap) [facility] Start: 08-20-2028 Tetanus vaccination Tetanus: Every 10yrs [facility] Start: 10-26-2027 Lipid panel Lipid Panel [facility] Start: 01-18-2027 Lipid panel Lipid Panel [facility] Start: 05-17-2024 Screening for malignant neoplasm of breast Mammogram [facility] Start: 04-19-2024 Medicare Annual Wellness Visit Medicare Annual Wellness Visit (AWV) [facility] Start: 04-18-2024 History and physical examination, annual for health maintenance Wellness Visit [facility] Start: 04-11-2024 Diabetes mellitus screening Diabetes Screening [facility] Start: 04-11-2024 Hemoglobin A1c measurement Diabetes: Hemoglobin A1C [facility] Start: 11-03-2023 Pneumococcal Vaccine: 65+ Years (2 - PCV) Pneumococcal Vaccine: 65+ Years (2 - PCV) [facility] Start: 11-03-2023 Pneumococcal Vaccine: Age 65+ (2 - PCV) Pneumococcal Vaccine: Age 65+ (2 - PCV) [facility] Start: 10-26-2023 Diabetes mellitus screening Diabetes Screening [facility] Start: 10-26-2023 Hemoglobin A1c measurement Diabetes: Hemoglobin A1C [facility] Start: 10-24-2023 End: 10-24-2023 Patient encounter procedure 10/24/2023 10:00 AM EDT Office Visit [facility] [address] [place] [id number] Naa Machado MD [address] [place] [address] [facility] Start: 08-02-2023 End: 08-02-2024 Esophagogastroduodenoscopy EGD Endoscopy Routine Gastroesophageal reflux disease, unspecified whether esophagitis present Expected: 08/02/2023, Expires: 08/02/2024 [facility] Service Area Work Phone: Immunizations Immunization Date Immunization Notes Care Provider Fa cili 05-24-2023 RSV, 60 Years And Ol codey (AREXVY) Naa Machado MD Work Phone: [facility] Work Phone: 05-02-2023 Flu vaccine, quadrivalent, high-dose, preservative free, age 65y+ (FLUZONE) Naa Machado MD Work Phone: [facility] Work Phone: 11-02-2022 pneumococcal polysaccharide vaccine, 23 valent Naa Machado MD Work Phone: [facility] Work Phone: 05-18-2022 Pfizer COVID-19 Vac Bivalent 30 MCG/0.3ML Intramuscular Suspension Naa Machado Work Phone: [facility] 04-26-2022 Fluzone High-Dose Quadrivalent 0.7 ML Intramuscular Suspension Prefilled Syringe; Translations: [Fluzone High-Dose Quadrivalent 0.7 ML Intramuscular Suspension Prefilled Syringe] Naa Machado Work Phone: [facility] Work Phone: Payers Date Payer Category Payer Medicare [id number] 2022 Medicare [id number] 2017 Medicare [employer] [facility] [employer] CHOICE HMO xxxxxxxxxxxx 2017-Present [address] [place] [address] xxxxxxxxxxxx [id number] 2017 Unknown 2017 Unknown [id number] 1957 Unknown [id number] 1957 Unknown [id number] 1957 Unknown [id number] 1957 Unknown [id number] 1957 Unknown [id number] 1957 Unknown [id number] 1957 Unknown [id number] 2.16.840.1.736077.3.579.2.356 1955 Unknown [id number] 2.16.840.1.763170.3.579.2.356 1955 Unknown [id number] 2.16.840.1.234483.3.579.2.356 1957 Unknown [id number] 2.16.840.1.508118.3.579.2.356 1957 Unknown [id number] 2.16.840.1.110797.3.579.2.356 1957 Unknown [id number] 2.16.840.1.877403.3.579.2.356 1957 Unknown [id number] 2.16.840.1.744945.3.579.2.356 1957 Unknown [id number] 2.16.840.1.485938.3.579.2.124 5 1955 Unknown [id number] 2.16.840.1.158820.3.579.2.106 9 1955 Unknown [id number] 2.16.840.1.918311.3.579.2.106 9 1957 Unknown [id number] 2.16.840.1.685633.3.579.2.106 9 1957 Unknown [id number] 2.16.840.1.406031.3.579.2.106 9 1957 Unknown [id number] 2.16.840.1.425586.3.579.2.902 1957 Unknown [id number] 2.16.840.1.587890.3.579.2.903 1957 Unknown [id number] 2.16.840.1.206612.3.579.2.903 1957 Unknown [id number] 2.16.840.1.646814.3.579.2.124 4 1957 Unknown [id number] 2.16.840.1.072082.3.579.2.124 4 1957 Unknown [id number] 2.16.840.1.462047.3.579.2.124 4 1957 Unknown [id number] 2.16.840.1.292710.3.579.2.124 4 1957 Unknown [id number] 2.16.840.1.939725.3.579.2.124 4 1957 Unknown [id number] 2.16.840.1.370589.3.579.2.903 1957 Unknown [id number] 2.16.840.1.506389.3.579.2.903 1957 Unknown [id number] 2.16.840.1.929331.3.579.2.903 1957 Unknown [id number] 2.16.840.1.444902.3.579.2.903 1957 Unknown [id number] 2.16.840.1.887789.3.579.2.903 1957 Unknown [id number] 2.16.840.1.823158.3.579.2.903 1957 Unknown [id number] 2.16.840.1.677779.3.579.2.903 1957 Unknown [id number] 2.16.840.1.773174.3.579.2.124 3 1957 Unknown [id number] 2.16.840.1.161134.3.579.2.124 3 1957 Unknown [id number] 2.16.840.1.703723.3.579.2.124 3 1957 Unknown [id number] 2.16.840.1.002263.3.579.2.124 3 1957 Unknown [id number] 2.16.840.1.196337.3.579.2.124 3 Social History Date Type Detail Facility Start: 12-23-2018 End: 04-11-2023 Tobacco smoking status NHIS Never smoker [place] Start: 12-23-2018 End: 04-18-2023 Alcohol intake Yes [place] Start: 11-18-2018 History SDOH Alcohol Frequency 2 [place] Start: 11-18-2018 History SDOH Alcohol Std Drinks 1 [place] Start: 1955 Sex Assigned At Not on file [place] Start: 03-31-2019 End: 08-02-2023 Alcohol intake Current drinker of alcohol (finding) [place] Start: 04-13-2020 End: 08-01-2023 Tobacco use and exposure Never used [facility] Work Phone: Exposure to SARS-CoV-2 (event) Unable to assess [place] Start: 10-18-2022 End: 04-18-2023 Former smoker Former smoker [facility] Work Phone: Tobacco smoking status [facility] Tobacco smoking consumption unknown [facility] Start: 09-24-2022 End: 08-01-2023 Tobacco smoking status NHIS Ex-smoker [facility] End: 07-15-1980 History of tobacco use Current smoker [facility] Work Phone: End: 07-15-1980 History of tobacco use Cigarette Smoker [facility] Work Phone: Start: 09-24-2022 Alcohol Comment SOCIALLY [facility] Work Phone: Start: 10-08-2022 End: 08-02-2023 Exposure to SARS-CoV-2 (event) Not sure [facility] NEGATED: Highlighted row - - [facility] DO Work Phone: Medical Equipment Procedure Code Equipment Code Equipment Origin al Text Equipment Identifier Dates test ONCE DAILY DIRECTED [id number] Start: 03-27-2018 Easy Touch Juan ts 32G USE DIRECTED. Quantity: 1 Refills: 3 Naa Machado MD Start : 15-Jun-2019 Active 100 Unit Box Start: 06-15-2019 Easy Touch Test In Vitro Strip USE DIRECTED. Quantity: 2 Refills: 4 Naa Machado MD Start : 15-Jun-2019 Active 50 Strip Box Start: 06-15-2019 Easy Touch Juan ts 32G USE DIRECTED. Quantity: 1 Refills: 3 Naa Machado MD Start : 15-Jun-2019 Active 100 Unit Box Start: 06-15-2019 Easy Touch Test In Vitro Strip USE DIRECTED. Quantity: 2 Refills: 4 Naa Machado MD Start : 15-Jun-2019 Active 50 Strip Box Start: 06-15-2019 Easy Touch Juan ts 32G USE DIRECTED. Quantity: 1 Refills: 3 Naa Machado MD Start : 15-Jun-2019 Active 100 Unit Box Start: 06-15-2019 Easy Touch Test In Vitro Strip USE DIRECTED. Quantity: 2 Refills: 4 Naa Machado MD Start : 15-Jun-2019 Active 50 Strip Box Start: 06-15-2019 Easy Touch Juan ts 32G USE DIRECTED. Quantity: 1 Refills: 3 Naa Machado MD Start : 15-Jun-2019 Active 100 Unit Box Start: 06-15-2019 Easy Touch Test In Vitro Strip USE DIRECTED. Quantity: 2 Refills: 4 Naa Machado MD Start : 15-Jun-2019 Active 50 Strip Box Start: 06-15-2019 Easy Touch Juan ts 32G USE DIRECTED. Quantity: 1 Refills: 3 Naa Machado MD Start : 15-Jun-2019 Active 100 Unit Box Start: 06-15-2019 Easy Touch Test In Vitro Strip USE DIRECTED. Quantity: 2 Refills: 4 Naa Machado MD Start : 15-Jun-2019 Active 50 Strip Box Start: 06-15-2019 Easy Touch Juan ts 32G USE DIRECTED. Quantity: 1 Refills: 3 Naa Machado MD Start : 15-Jun-2019 Active 100 Unit Box Start: 06-15-2019 Easy Touch Test In Vitro Strip USE DIRECTED. Quantity: 2 Refills: 4 Naa Machado MD Start : 15-Jun-2019 Active 50 Strip Box Start: 06-15-2019 Easy Touch Juan ts 32G USE DIRECTED. Quantity: 1 Refills: 3 Naa Machado MD Start : 15-Jun-2019 Active 100 Unit Box Start: 06-15-2019 Easy Touch Test In Vitro Strip USE DIRECTED. Quantity: 2 Refills: 4 Naa Machado MD Start : 15-Jun-2019 Active 50 Strip Box Start: 06-15-2019 USE DIRECTED. [id number] Start: 06-15-2019 Linx System, Ref lux Mngmnt, [address], [place] Conditional Case [id number] Start: 07-22-2018 Functional Status Date Assessment Result Facility NEGATED: Highlighted row Functional performance Functional status health issues are not documented Disease [facility] DO Work Phone: Mental Status Date Assessment Result Facility NEGATED: Highlighted row Cognitive function [Interpretation] Cognitive status health issues are not documented Disease [facility] DO Work Phone: Clinical Notes 05-15-2021 to 08-01-2023 Discharge InstructionsAreli Arvizu MD - 08/01/2023 11:30 AM Julio Arvizu MD - 08/01/2023 11:30 AM Dmitriy Laurent DPM - 07/25/2023 9:33 AM EST Note Date & Type Note Facility 08-01-2023 Hospital Discharge instructions Keisha Torrez RN - 08/01/2023 12:32 PM EST Patient Instructions after a Colonoscopy The anesthetics, sedatives or narcotics which were given to you today will be acting in your body for the next 24 hours, so you might feel a little sleepy or groggy. This feeling should slowly wear off. Carefully read and follow the instructions. You received sedation today: - Do not drive or operate any machinery or power tools of any kind. - No alcoholic beverages today, not even beer or wine. - Do not make any important decisions or sign any legal documents. - No over the counter medications that contain alcohol or that may cause drowsiness. - Do not make any important decisions or sign any legal documents. While it is common to experience mild to moderate abdominal distention, gas, or belching after your procedure, if any of these symptoms occur following discharge from the GI Lab or within one week of having your procedure, call the [facility] to be advised whether a visit to your nearest Urgent Care or Emergency Department is indicated. Take this paper with you if you go. - If you develop an allergic reaction to the medications that were given during your procedure such as difficulty breathing, rash, hives, severe nausea, vomiting or lightheadedness. - If you experience chest pain, shortness of breath, severe abdominal pain, fevers and chills. -If you develop signs and symptoms of bleeding such as blood in your spit, if your stools turn black, tarry, or bloody - If you have not urinated within 8 hours following your procedure. - If your IV site becomes painful, red, inflamed, or looks infected. If you received a biopsy/polypectomy/sphincterotom y the following instructions apply below: __ Do not use Aspirin containing products, non-steroidal medications or anti-coagulants for one week following your procedure. (Examples of these types of medications are: Advil, Arthrotec, Aleve, Coumadin, Ecotrin, Heparin, Ibuprofen, Indocin, Motrin, Naprosyn, Nuprin, Plavix, Vioxx, and Voltarin, or their generic forms. This list is not all-inclusive. Check with your physician or pharmacist before resuming medications.) __ Eat a soft diet today. Avoid foods that are poorly digested for the next 24 hours. These foods would include: nuts, beans, lettuce, red meats, and fried foods. Start with liquids and advance your diet as tolerated, gradually work up to eating solids. __ Do not have a Barium Study or Enema for one week. Your physician recommends the additional following instructions: -You have a contact number available for emergencies. The signs and symptoms of potential delayed complications were discussed with you. You may return to normal activities tomorrow. -Resume your previous diet. -Continue your present medications. -We are waiting for your pathology results. -Your physician has recommended a repeat colonoscopy (date to be determined after pending pathology results are reviewed) for surveillance based on pathology results. -The findings and recommendations have been discussed with you. -The findings and recommendations were discussed with your family. - Please see Medication Reconciliation Form for new medication/medications prescribed. If you experience any problems or have any questions following discharge from the GI Lab, please call: Dr. Arvizu's office. documented in this encounter [facility] Work Phone: 08-01-2023 History and physical note Pre procedure H&P Pt feels fine , no complaint General appearance: Comfortable, no distress ROS: No SOB Medications reviewed Head: Normal Neck: Soft Heart: Regular Lungs: Clear Abdomen: soft Impression: clinically doing fine, proceed with procedure Problem List Items Addressed This Visit Bariatric surgery status Relevant Orders EGD Chronic diarrhea Relevant Orders Colonoscopy Screening; Average Risk Patient EGD GERD (gastroesophageal reflux disease) Relevant Orders EGD S/P laparoscopic cholecystectomy Relevant Orders Colonoscopy Screening; Average Risk Patient EGD Other Visit Diagnoses Poor appetite Relevant Orders EGD [facility] Work Phone: 08-01-2023 History and physical note Pre procedure H&P Pt feels fine , no complaint General appearance: Comfortable, no distress ROS: No SOB Medications reviewed Head: Normal Neck: Soft Heart: Regular Lungs: Clear Abdomen: soft Impression: clinically doing fine, proceed with procedure Problem List Items Addressed This Visit Bariatric surgery status Relevant Orders EGD Chronic diarrhea Relevant Orders Colonoscopy Screening; Average Risk Patient EGD GERD (gastroesophageal reflux disease) Relevant Orders EGD S/P laparoscopic cholecystectomy Relevant Orders Colonoscopy Screening; Average Risk Patient EGD Other Visit Diagnoses Poor appetite Relevant Orders EGD documented in this encounter [facility] Work Phone: 07-25-2023 History of Present illness Narrative Patient: Isabel Perez Date of : 1955 (68 y.o.) PCP: Jax Boyd MD Procedures ASSESSMENT/PLAN: Isabel Perez 68 y.o. female with history of painful bunion, hammertoes 2 through 4 and 5 on the right foot. Lumbar radiculopathy of the lower extremities. Plan: Patient may be needing surgery on her lower back for radiculopathy and is also being treated for gallbladder problems so she is putting off for elective right foot surgery. Patient was given refill for her radiculopathy symptoms in her feet for gabapentin 200 mg at nighttime. Patient to call when she is ready to reschedule her right foot surgery. Assessment & plan notes cannot be loaded without a specified hospital service. SUBJECTIVE: History Since Last Visit: Patient 68-year-old female seen at the office for painful bunion and hammertoes 2 through 5 on the right foot. Patient is wearing wider shoes and taking anti-inflammatories to manage her symptoms. Patient wants to hold off on surgery due to her lumbar back issues and gallbladder problems. Patient did ask for refill of her gabapentin which helps her radiculopathy symptoms in her feet. Review of Systems: OBJECTIVE: Physical Examination: Integument-skin is warm dry and supple bilateral feet. Neuro-diminished sensation to toes bilateral feet. Musculoskeletal-medial bony prominence of the first metatarsal of the lateral deviated right hallux. Patient has contracted toes that are painful 2 through 5 on the right foot. Vascular-DP and PT pulses are palpable bilateral feet. BP 122/83 (BP Location: Left arm, Patient Position: Sitting, BP Cuff Size: Adult) Pulse 98 Temp 98.2 F (36.8 C) (Infrared) Laboratory and Additional Data Reviewed: Reviewed:[id number]} XR Lumbar Spine 2-3 Views (Standard) Narrative: EXAMINATION: XR LUMBAR SPINE 2-3 VIEWS (STANDARD) HISTORY: lower back pain with hx of degenerative disc disease COMPARISON: None. Impression: FINDINGS/ 1. Anterolisthesis of L5 on S1 measuring 1 cm. 2. Vertebral body height is preserved. 3. No acute fracture or dislocation. 4. Above average stool burden of the right colon. 5. Cholecystectomy. 6. Moderate degeneration of the bilateral sacroiliac joints. Workstation ID: [id number] documented in this encounter [facility] 06-20-2023 History of Present illness Narrative Patient: Isabel Perez Date of : 1955 (68 y.o.) PCP: Jax Boyd MD Procedures ASSESSMENT/PLAN: Isabel Perez 68 y.o. female with history of idiopathic neuropathy symptoms of both feet with probable radiculopathy from the lower back. Painful bunion and hammertoes 2 through 4 on the right foot. Plan: I prescribed 200 mg of gabapentin to be taken at nighttime before bed. Patient would really like to have her foot fixed before vacation in October. After doing my updated exam I have recommended an Skip bunionectomy and arthrodesis of toes 2 through 4 the right foot. Patient is going for a pain management consult for lower extremity radiculopathy from her lumbar sacral spine. Patient also has a colonoscopy coming up due to GI problems after having her gallbladder removed. If both appointments go well patient like to move forward with surgery and mid-to-late July. Assessment & plan notes cannot be loaded without a specified hospital service. SUBJECTIVE: History Since Last Visit: Patient 68-year-old female who comes in complaining of worsening symptoms of her hammertoes and bunion pain on the right foot. Patient unfortunately still does not have a pain management consult for the tingling in her toes from her lower back that is aggravated when laying down.. Patient has bone spurs on her lower sacral spine likely putting pressure on the sciatic nerves giving her tingling in her feet. Patient would like to have a higher dosage of the gabapentin which does help at night. Review of Systems: OBJECTIVE: Physical Examination: Integument-skin is warm dry and supple bilateral feet. Neuro-patient Musculoskeletal-patient has pain over the dorsomedial bony prominence of the first metatarsal head on the right foot. Patient has no pain with first MPJ range of motion on the right foot. Patient does have contracted toes 2 through 5 bilateral feet. Patient's contractures are rigid on toes 2 through 4 on both feet. Patient only appears to be having significant pain in the bunion and hammertoes 2 through 4 on the right foot today. Vascular-DP and PT pulses are palpable bilateral feet. BP 123/78 (BP Location: Right arm, Patient Position: Sitting, BP Cuff Size: Adult) Pulse 62 Temp 97.9 F (36.6 C) (Infrared) Laboratory and Additional Data Reviewed: Reviewed:[id number]} XR Lumbar Spine 2-3 Views (Standard) Narrative: EXAMINATION: XR LUMBAR SPINE 2-3 VIEWS (STANDARD) HISTORY: lower back pain with hx of degenerative disc disease COMPARISON: None. Impression: FINDINGS/ 1. Anterolisthesis of L5 on S1 measuring 1 cm. 2. Vertebral body height is preserved. 3. No acute fracture or dislocation. 4. Above average stool burden of the right colon. 5. Cholecystectomy. 6. Moderate degeneration of the bilateral sacroiliac joints. Workstation ID: [id number] documented in this encounter [facility] 06-20-2023 History of Present illness Narrative Subjective Patient ID: Isabel Perez is a 68 y.o. female who presents for Follow-up (2 MONTH F/U XRAY LEFT ELBOW, MAMMOGRAM, DEXA BONE DENSITY. C/O BACK PAIN S/P FALL IN FEBRUARY 2023 - SCHEDULED FOR MRI SPINE IN JULY. C/O CHRONIC DIARRHEA SINCE CHOLECYSTECTOMY AND DECREASED ). HPI F/U ON XR, MAMMO AND BONE DENSITY . MED REFILL. WORSENING Chronic diarrhea ,S/P CHOLECYSTECTOMY A WHILE AGO. CHOLESTYRAMINE DOESN'T HELP MUCH. POOR APPETITE , INDIGESTION ,WEIGHT LOSS.,FATIGUE. Review of Systems Constitutional: Positive for fatigue. Negative for chills and fever. POOR APPETITE,WEIGHT LOSS. HENT: Negative. Negative for congestion, postnasal drip and rhinorrhea. Eyes: Negative. Negative for visual disturbance. Respiratory: Negative for cough, shortness of breath and wheezing. Cardiovascular: Negative. Negative for chest pain, palpitations and leg swelling. Gastrointestinal: Positive for diarrhea. Negative for abdominal distention, abdominal pain, constipation, nausea and vomiting. Endocrine: Negative. Genitourinary: Negative for dysuria and urgency. Musculoskeletal: Negative. Negative for back pain. Skin: Negative. Negative for rash. Allergic/Immunologic: Negative for immunocompromised state. Neurological: Negative. Negative for dizziness, weakness, light-headedness and headaches. Psychiatric/Behavioral: Negative. Negative for agitation. Objective Physical Exam Constitutional: General: She is not in acute distress. HENT: Head: Normocephalic. Nose: Nose normal. Mouth/Throat: Mouth: Mucous membranes are moist. Eyes: Conjunctiva/sclera: Conjunctivae normal. Pupils: Pupils are equal, round, and reactive to light. Cardiovascular: Rate and Rhythm: Normal rate and regular rhythm. Pulses: Normal pulses. Heart sounds: Normal heart sounds. Pulmonary: Effort: No respiratory distress. Breath sounds: No wheezing. Chest: Chest wall: No tenderness. Abdominal: General: Abdomen is flat. Bowel sounds are normal. Palpations: Abdomen is soft. Tenderness: There is no abdominal tenderness. Musculoskeletal: General: No tenderness. Normal range of motion. Cervical back: Normal range of motion. Lymphadenopathy: Cervical: No cervical adenopathy. Skin: General: Skin is warm and dry. Findings: No rash. Neurological: General: No focal deficit present. Mental Status: She is alert. Mental status is at baseline. Psychiatric: Mood and Affect: Mood normal. Behavior: Behavior normal. Assessment/Plan 1. Chronic diarrhea Colonoscopy Screening; Average Risk Patient EGD cholestyramine light (Prevalite) 4 gram packet 2. Gastroesophageal reflux disease without esophagitis EGD famotidine (Pepcid) 20 mg tablet omeprazole (PriLOSEC) [address] capsule 3. S/P laparoscopic cholecystectomy Colonoscopy Screening; Average Risk Patient EGD 4. Bariatric surgery status EGD 5. Poor appetite EGD 6. Benign essential HTN amLODIPine (Norvasc) 5 mg tablet metoprolol succinate XL (Kapspargo Sprinkle) 25 mg 24 hr capsule 7. Allergic rhinitis, unspecified seasonality, unspecified trigger fexofenadine (Rosalinda) 180 mg tablet 8. Chronic fatigue 9. Weight loss TEST RESULTS WERE DISCUSSED. ADVISED TO HAVE LOW FAT AND LOW CALORIE DIET , DAILY EXERCISE. WILL INCREASE THE CHOLESTYRAMINE TO BID. MONITOR BP GOAL BP LOWER THAN 130/80 LOW SALT EXERCISE DAILY Stop smoking and chewing tobacco. Lose weight. Do not overeat. Eat small portions at meals and snacks. Avoid tight clothing and tight-fitting belts. Do not lie down or bend over within the first 15-30 minutes after eating. Do not chew gum or suck on hard candy. Swallowing air with chewing gum and sucking on hard candy can cause belching and reflux. Raise the head of your bed 6-8 inches. Do not eat/drink: chocolate, tomatoes, tomato sauces, oranges, pineapple, grapefruit, mints, coffee, alcohol, carbonated beverages, and black pepper. Eat a low fat diet. Fatty and greasy foods cause your stomach to produce more acid. ADVISED FOR GLUTEN FREE DIET. MDM 1) COMPLEXITY: 1 UNDIAGNOSED NEW PROBLEM WITH UNCERTAIN PROGNOSIS 2)DATA: TESTS INTERPRETED AND OR ORDERED, TOOK INDEPENDENT HISTORY OR RECORDS REVIEWED 3)RISK: MODERATE RISK DUE TO NATURE OF MEDICAL CONDITIONS/COMORBIDITY OR MEDICATIONS ORDERED OR SURGICAL OR PROCEDURE REFERRAL, . 4 weeks (depend on scope schedule). documented in this encounter [facility] Work Phone: 05-09-2023 History of Present illness Narrative Patient: Isabel Perez Date of : 1955 (68 y.o.) PCP: Jax Boyd MD Procedures ASSESSMENT/PLAN: Isabel Perez 68 y.o. female with history of idiopathic neuropathy pain of both lower extremities doing better with gabapentin. Contracted hammertoes 2 through 5 bilateral feet. Plan: Patient was given a refill on the gabapentin to be taken at nighttime before bed. I did refer patient to pain management for her lower back pain. I discussed with patient her treatment options for the hammertoes were wider deeper shoes. I also applied gel toe splints and encouraged her to use Motrin or tylenol daily. A discussion of surgical correction was also had. I recommend arthrodesis of toes 2 3 and 4 with K wire fixation and a arthroplasty of the fifth toe. Patient like to set up surgery for the right foot in early July. Reappoint in 6 weeks for an H&P. Assessment & plan notes cannot be loaded without a specified hospital service. SUBJECTIVE: History Since Last Visit: Patient is a 68-year-old female comes in for follow-up of her idiopathic neuropathy pain of both feet. Patient with the gabapentin helps some. Patient did have x-rays which showed arthritis in the iliac sacral area of her lower back. Patient also had an EMG last spring which was negative for any radiculopathy. Review of Systems: OBJECTIVE: Physical Examination: Integument-skin is warm dry and supple bilateral feet. Neuro-some diminished sensation of the toes 1 through 5 bilateral feet with [place] Humberto 5.0 some monofilament. Musculoskeletal-contracted second through fifth proximal interphalangeal joints bilateral feet. The right is rigid and the left are semiflexible. Vascular-DP and PT pulses are palpable bilateral feet. BP 132/82 (BP Location: Right arm, Patient Position: Sitting, BP Cuff Size: Adult) Pulse (!) 59 Temp 98.1 F (36.7 C) (Infrared) Laboratory and Additional Data Reviewed: Reviewed:[id number]} XR Lumbar Spine 2-3 Views (Standard) Narrative: EXAMINATION: XR LUMBAR SPINE 2-3 VIEWS (STANDARD) HISTORY: lower back pain with hx of degenerative disc disease COMPARISON: None. Impression: FINDINGS/ 1. Anterolisthesis of L5 on S1 measuring 1 cm. 2. Vertebral body height is preserved. 3. No acute fracture or dislocation. 4. Above average stool burden of the right colon. 5. Cholecystectomy. 6. Moderate degeneration of the bilateral sacroiliac joints. Workstation ID: [id number] documented in this encounter [facility] 04-18-2023 History of Present illness Narrative Subjective Reason for Visit: Isabel Perez is an 68 y.o. female here for a Medicare Wellness visit. Past Medical, Surgical, and Family History reviewed and updated in chart. Reviewed all medications by prescribing practitioner or clinical pharmacist (such as prescriptions, OTCs, herbal therapies and supplements) and documented in the medical record. HPI LAB F/U. S/P ACCIDENTAL FALL 2 MONTHS AGO (SLIPPED ON WET FLOOR ) WITH TRAUMA TO L ELBOW. HAS BEEN HAVING MILD L ELBOW PAIN 2-3/10 ON AND OFF SINCE THEN . NO CHANGE IN RANGE OF MOTION. CHRONIC DIARRHEA ,S/P CHOLECYSTECTOMY. CHOLESTYRAMINE GIVEN BY GI HELPS BUT PT STOPPED TAKING IT (CAUSES BLOATING). MEDICARE WELLNESS EXAM. Patient Care Team: Naa Machado MD as PCP - General Naa Machado MD as PCP - MSSP ACO Attributed Provider Review of Systems Constitutional: Negative for chills and fever. HENT: Negative. Negative for congestion, postnasal drip and rhinorrhea. Eyes: Negative. Negative for visual disturbance. Respiratory: Negative for cough, shortness of breath and wheezing. Cardiovascular: Negative. Negative for chest pain, palpitations and leg swelling. Gastrointestinal: Positive for diarrhea. Negative for abdominal distention, abdominal pain, constipation, nausea and vomiting. Endocrine: Negative. Genitourinary: Negative for dysuria and urgency. Musculoskeletal: Positive for arthralgias. Negative for back pain. Skin: Negative. Negative for rash. Allergic/Immunologic: Negative for immunocompromised state. Neurological: Negative. Negative for dizziness, weakness, light-headedness and headaches. Psychiatric/Behavioral: Negative. Negative for agitation. Objective Vitals: BP 120/80 Pulse 66 Ht 1.6 m (5' 3 ) Wt 75.3 kg (166 lb) SpO2 97% BMI 29.41 kg/m Physical Exam Constitutional: General: She is not in acute distress. HENT: Head: Normocephalic. Nose: Nose normal. Mouth/Throat: Mouth: Mucous membranes are moist. Eyes: Conjunctiva/sclera: Conjunctivae normal. Pupils: Pupils are equal, round, and reactive to light. Cardiovascular: Rate and Rhythm: Normal rate and regular rhythm. Pulses: Normal pulses. Heart sounds: Normal heart sounds. Pulmonary: Effort: No respiratory distress. Breath sounds: No wheezing. Chest: Chest wall: No tenderness. Abdominal: General: Abdomen is flat. Bowel sounds are normal. Palpations: Abdomen is soft. Tenderness: There is no abdominal tenderness. Musculoskeletal: General: No tenderness. Normal range of motion. Cervical back: Normal range of motion. Comments: NORMAL RANGE OF MOTION OF L ELBOW W/O TENDERNESS , NO INFLAMMATION. Lymphadenopathy: Cervical: No cervical adenopathy. Skin: General: Skin is warm and dry. Findings: No rash. Neurological: General: No focal deficit present. Mental Status: She is alert. Mental status is at baseline. Psychiatric: Mood and Affect: Mood normal. Behavior: Behavior normal. Assessment/Plan 1. Routine general medical examination at health care facility 2. Encounter for screening mammogram for breast cancer BI mammo bilateral screening tomosynthesis 3. Postmenopausal XR DEXA bone density 4. Left elbow pain XR elbow left 3+ views 5. History of trauma XR elbow left 3+ views 6. Chronic diarrhea 7. S/P laparoscopic cholecystectomy 8. Benign essential HTN 9. Glucose intolerance TEST RESULTS WERE DISCUSSED. ADVISED TO HAVE LOW FAT AND LOW CALORIE DIET AND TO LOOSE WEIGHT, DAILY EXERCISE. I HIGHLY ADVISED TO RESTART THE CHOLESTYRAMINE. EXPLAINED CAN REDUCE IT TO DAILY AND GRADUALLY INCREASE IT TO TID FOR DIARRHEA. ADVISED TO APPLY WARM COMPRESSION AND OTC PAIN CREAM PRN FOR PAIN. ADVISED FOR FALL PRECAUTION. Advanced Care Planing discussed, diagnosis , treatment and prognosis discussed with pt,pt has capacity to make own decision, pt has a living will, to bring a copy for the chart. MDM 1) COMPLEXITY: 1 UNDIAGNOSED NEW PROBLEM WITH UNCERTAIN PROGNOSIS 2)DATA: TESTS INTERPRETED AND OR ORDERED, TOOK INDEPENDENT HISTORY OR RECORDS REVIEWED 3)RISK: MODERATE RISK DUE TO NATURE OF MEDICAL CONDITIONS/COMORBIDITY OR MEDICATIONS ORDERED OR SURGICAL OR PROCEDURE REFERRAL, . 2 mon documented in this encounter [facility] Work Phone: 04-11-2023 History of Present illness Narrative Patient Name: Isabel Perez MR #: [id number] : 1955 Gender: female. Date of Consultation: 04/11/2023. Author: YASH Valente Physicians: Jax Boyd MD (Family); No ref. provider found (Referring) History of Present Illness: Isabel Perez is a 68 y.o. female who presents with idiopathic neuropathy pain of both feet that bother her at nighttime. Patient states this has been going on for over 5 years. Patient does have a history of lower back degenerative arthritis in which she sees a chiropractor regularly for. Patient's been on gabapentin in the past but nothing here recently because she was getting drowsiness symptoms with higher doses. Assessment and Plan: 1. 1. Other idiopathic peripheral autonomic neuropathy XR Lumbar Spine 2-3 Views (Standard) Glucose T4, Free B12/Folate Vitamin B6 2. Hammer toes, bilateral Glucose T4, Free B12/Folate Vitamin B6 3. Lumbar back pain with radiculopathy affecting lower extremity XR Lumbar Spine 2-3 Views (Standard) Glucose T4, Free B12/Folate Vitamin B6 Plan: Patient was seen and evaluated. I discussed the findings with the patient. Patient was given opportunity to ask questions. Patient elects to have the following treatment as follows: I prescribed gabapentin 100 mg at nighttime before bed to help with neuropathy symptoms at night I have ordered x-rays of lower back to evaluate her disc disease. I have also ordered a battery of blood tests to check for the etiology of these neuropathy symptoms. Reappoint in 1 month Lower Extremity: Integumentary: Skin is warm dry and supple bilateral feet. There is no wounds, redness or ecchymosis noted. Musculoskeletal: Contracted hammertoes 2 through 4 bilateral feet. Patient had no pain on the plantar aspects of either heel today. Neurological: Patient missed 2 [place] Humberto 5.0 some monofilament's on each forefoot when checked. Patient could feel the tuning fork over the great toe joints. Vascular: DP and PT pulses are 1 of 4 bilateral feet. * No LDAs found * BP 133/88 (BP Location: Right arm, Patient Position: Sitting, BP Cuff Size: X-large Adult) Pulse 75 Temp 97.7 F (36.5 C) (Infrared) Allergy Information: I have reviewed the patient's allergies. Milk, Mold, Pollen extracts, and Whey Home Medications: Current Outpatient Medications Medication Sig Dispense Refill amLODIPine (NORVASC) 5 MG tablet cyanocobalamin (B-12) 1000 MCG tablet Take 1 (one) tablet (1,000 mcg total) by mouth daily . famotidine (PEPCID) 20 MG tablet fexofenadine-pseudoePHEDrine (ROSALINDA-D 24) 180-240 mg per 24 hr tablet Take 180 mg by mouth . metoprolol tartrate (LOPRESSOR) 25 MG tablet multivitamin (THERAGRAN) per tablet Take by mouth daily . omeprazole (PRILOSEC) 40 MG capsule cholestyramine-aspartame (QUESTRAN LIGHT) 4 gram PwPk Take 1 (one) packet by mouth 2 (two) times a day with meals . gabapentin (NEURONTIN) 100 MG capsule Take 1 (one) capsule (100 mg total) by mouth every night at bedtime . 30 capsule 1 No current facility-administered medications for this visit. Review of Systems: The following system(s) were reviewed and pertinent findings noted: Pertinent positives and negatives as mentioned above, otherwise full review of systems is negative unless mentioned below: Patient currently denies Nausea/Vomiting/Fever/Chills/Emilie rtness of Breath/Chest Pain. Medical History: Past Medical History: Diagnosis Date Acid reflux Hypertension Low iron . Surgical History: Past Surgical History: Procedure Laterality Date CARPAL TUNNEL RELEASE CHOLECYSTECTOMY STOMACH SURGERY N/A STOMACH UNLISTED PROCEDURE Linx proceedure . Social History: Social History Socioeconomic History Marital status: Tobacco Use Smoking status: Never Smokeless tobacco: Never Substance and Sexual Activity Alcohol use: Yes Drug use: Never Family History: History reviewed. No pertinent family history. Electronically signed by the above physician 04/11/23 documented in this encounter [facility] 11-22-2022 History of Present illness Narrative Subjective Patient ID: Isabel Perez is a 67 y.o. female who presents for Follow-up (3 WEEK F/U. PATIENT HAD CHOLECYSTECTOMY 11/01/22. STILL HAS). HPI F/U ON ABDOMINAL / BACK PAIN which IS RESOLVED AFTER CHOLECYSTECTOMY 2 WEEKS AGO. STILL HAS DIARRHEA ON AND OFF ,BUT TOLERATES THE FOOD BETTER. WORSENING CHRONIC COLD INTOLERANCE . Review of Systems Constitutional: Negative for chills and fever. HENT: Negative. Negative for congestion, postnasal drip and rhinorrhea. Eyes: Negative. Negative for visual disturbance. Respiratory: Negative for cough, shortness of breath and wheezing. Cardiovascular: Negative. Negative for chest pain, palpitations and leg swelling. Gastrointestinal: Positive for diarrhea. Negative for abdominal distention, abdominal pain, constipation, nausea and vomiting. Endocrine: Positive for cold intolerance. Genitourinary: Negative for dysuria and urgency. Musculoskeletal: Negative. Negative for back pain. Skin: Negative. Negative for rash. Allergic/Immunologic: Negative for immunocompromised state. Neurological: Negative. Negative for dizziness, weakness, light-headedness and headaches. Psychiatric/Behavioral: Negative. Negative for agitation. Objective Physical Exam Constitutional: General: She is not in acute distress. HENT: Head: Normocephalic. Nose: Nose normal. Mouth/Throat: Mouth: Mucous membranes are moist. Eyes: Conjunctiva/sclera: Conjunctivae normal. Pupils: Pupils are equal, round, and reactive to light. Cardiovascular: Rate and Rhythm: Normal rate and regular rhythm. Pulses: Normal pulses. Heart sounds: Normal heart sounds. Pulmonary: Effort: No respiratory distress. Breath sounds: No wheezing. Chest: Chest wall: No tenderness. Abdominal: General: Abdomen is flat. Bowel sounds are normal. Palpations: Abdomen is soft. Tenderness: There is no abdominal tenderness. Comments: HEALED SURGICAL SCARS OF ABDOMEN. Musculoskeletal: General: No tenderness. Normal range of motion. Cervical back: Normal range of motion. Lymphadenopathy: Cervical: No cervical adenopathy. Skin: General: Skin is warm and dry. Findings: No rash. Neurological: General: No focal deficit present. Mental Status: She is alert. Mental status is at baseline. Psychiatric: Mood and Affect: Mood normal. Behavior: Behavior normal. Assessment/Plan 1. Benign essential HTN Comprehensive Metabolic Panel 2. Cold sensitivity TSH with reflex to Free T4 if abnormal Magnesium 3. Impaired fasting glucose Hemoglobin A1C 4. S/P laparoscopic cholecystectomy ADVISED TO HAVE LOW FAT AND LOW CALORIE DIET AND TO LOOSE WEIGHT, DAILY EXERCISE. ADVISED TO TAKE OTC MULTIVITAMIN DAILY AND TO DRESS UP IN LAYERS. MDM 1) COMPLEXITY: 1 UNDIAGNOSED NEW PROBLEM WITH UNCERTAIN PROGNOSIS 2)DATA: TESTS INTERPRETED AND OR ORDERED, TOOK INDEPENDENT HISTORY OR RECORDS REVIEWED 3)RISK: MODERATE RISK DUE TO NATURE OF MEDICAL CONDITIONS/COMORBIDITY OR MEDICATIONS ORDERED OR SURGICAL OR PROCEDURE REFERRAL, . 4 MON documented in this encounter [facility] Work Phone: 11-01-2022 Note PROCEDURE DETAILS Postoperative Diagnosis: Chronic cholecystitis History of sleeve gastrectomy and Lynx placement Surgeon: Williams Rosales Resident/Fellow/Other Cracker Dough Mixer: Jaymie Davis Procedure: 1. Cholecystectomy Laparoscopic Anesthesia: No anesthesiologist associated with this case Estimated Blood Loss: 10 cc Findings: Findings consistent with chronic cholecystitis with scarring around the base of the gallbladder. No stones within the gallbladder Specimens(s) Collected: yes, Gallbladder Operative Report: Indication for procedure: The patient is a 67-year-old woman with a surgical history of a laparoscopic sleeve gastrectomy in 2008 followed by a laparoscopic hiatal hernia repair and Lynx placement in 2019 followed by revision of the Lynx in 2019 who presented to the emergency department with a several month history of right upper quadrant abdominal pain and postprandial abdominal pain with radiation to her back. She had undergone extensive work-up as both an outpatient and in the emergency department. There were no clear stones on her CT scans or ultrasounds, however her symptoms were fairly consistent with chronic cholecystitis. Additionally, she did have issues with chronic diarrhea. I explained to her that taking out the gallbladder may not fix all of the issues she is having with her chronic diarrhea, but take out the gallbladder could help with some of the postprandial abdominal pain in her right upper quadrant. I explained the risks and benefits of the procedure including risk of bleeding, infection, injury to bile ducts, or injury to surrounding structures. The patient agreed to proceed with the operation. Description of the procedure: The patient was brought to the operating room, placed supine on the operative table, and general endotracheal anesthesia was induced. Her abdomen was then prepped and draped sterilely. We began by making an incision in the left upper quadrant and used an optical view trocar to gain access the abdomen. The abdomen was then insufflated 15 mmHg. We placed a Palma trocar supraumbilically. We placed 2 additional 5 mm ports in the right upper quadrant. We then identified the gallbladder and retracted it up over the liver, exposing the hepatocystic triangle. Then through meticulous dissection we took off the peritoneum over the base of the gallbladder and identified the cystic duct. 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 We removed the remainder of the gallbladder from the gallbladder fossa and were left with just the cystic duct as the only structure going into the gallbladder, thus achieving the critical view of safety. We placed 2 clips proximally and 1 clip distally on the cystic duct and divided it. We placed the gallbladder into an Endo Catch bag and removed it from the abdomen. We inspected the gallbladder fossa and noted good hemostasis. We closed the supraumbilical incision using 0 Vicryl suture. The main skin incisions were closed with 4-0 Monocryl and Dermabond for the skin. At the end of the procedure all needle, sponge, and instrument counts were correct. The patient tolerated the procedure well and was brought to the postanesthesia care unit for recovery. Attestation: Note Completion: Attending AttestationI performed the procedure without a resident Electronic Signatures: Williams Rosales) (Signed 01-Nov-2022 18:42) Authored: Post-Operative Note, Chart Review, Note Completion Last Updated: 01-Nov-2022 18:42 by Williams Rsoales) [facility] 11-01-2022 Note History of Present I llness: History Present Illness: Reason for surgery: Gallbladder HPI: 67-year-old woman with extensive past surgical history including a laparoscopic sleeve gastrectomy in 2007 followed by Lynx procedure in 2019, followed by Lynx revision and hiatal hernia repair in 2020. She presents with multi month symptoms of right upper quadrant abdominal pain that radiates around to her right flank and right back. Additionally she has been having chronic diarrhea. She has had extensive work-up back with her PCP as well as with Dr. Hooks. No clear stones on her ultrasounds, but symptoms do appear to be consistent with biliary dyskinesia. She presented to the emergency department with worsening abdominal pain overnight. Allergies: Allergies: No Known Allergies: Home Medication Review: Home Medications Reviewed: yes Impression/Procedure: Impression and Planned Procedure: 67-year-old with multiple prior surgeries presenting with chronic right upper quadrant abdominal pain and diarrhea. I explained to her the risks and benefits going to operating for a laparoscopic cholecystectomy. These risk and risk of bleeding, infection, injury to the bile ducts, or injury to surround structures. The patient agrees to proceed with the operation. Additionally I explained to the patient that take-out the gallbladder may not resolve all of her diarrhea issues and she is aware of this but would still like to go through with laparoscopic cholecystectomy. ERAS (Enhanced Recovery After Surgery): ERAS Patient: no Vital Signs: Temperature C: 36.6 degrees C Temperature F: 97.8 degrees F Heart Rate: 81 beats per minute Respiratory Rate: 20 breath per minute Blood Pressure Systolic: 162 mm/Hg Blood Pressure Diastolic: 100 mm/Hg Physical Exam by System: Constitutional: Well developed, awake/alert/oriented x3, no distress, alert and cooperative Respiratory/Thorax: Patent airways, Cardiovascular: Regular, rate Gastrointestinal: TTP in the RUQ with possible Tapia's sign Skin: Warm and dry, no lesions, no rashes Consent: COVID-19 Consent: COVID-19 Risk ConsentSurgeon has reviewed sellers risks related to the risk of marlo COVID-19 and if they contract COVID-19 what the risks are. Electronic Signatures: Williams Rosales) (Signed 01-Nov-2022 17:18) Authored: History of Present Illness, Allergies, Home Medication Review, Impression/Procedure, ERAS, Physical Exam, Consent, Note Completion Last Updated: 01-Nov-2022 17:18 by Williams Rosales) [facility] 10-22-2022 History of Present illness Narrative Images from the original note were not included. [facility] - Neurology [address] [place] [address] Nerve Conduction & EMG Report Patient: ISABEL PEREZ Sex: Female Date of : 1955 Visit Date: 10/22/2022 9:14 AM Age: 67 Years Examining MD: Maria Guadalupe Eugene MD Referred by: Dr. MACHADO Temperature: 31.7 Current Height: 5 feet 4 inch Referred for: BLE numbness and paresthesias for years. + LBP. No DM. Plan: The study was design to evaluate for entrapment neuropathy, polyneuropathy, radiculopathy, or plexopathy. Procedure indication, risk, complications, side effects and alternatives were explained. Patient agreed to proceed with verbal consent. Patient was instructed to clean the puncture site with soap and water and put some ice pack for bruising. Impression: There is NO clear electrodiagnostic evidence of a bilateral lumbosacral radiculopathy, plexopathy, or diffuse sensorimotor polyneuropathy at this time. EMG Summary: The bilateral peroneal and tibial motor nerve conduction studies were normal. The bilateral sural and superficial peroneal sensory nerve conduction studies were also normal. The bilateral H reflex was normal. Needle EMG of the muscle tested showed no abnormal spontaneous activity. Normal motor unit action potentials and recruitment patterns were seen. Maria Guadalupe Eugene MD Diplomate, ABPN, NBPAS Clinical Neurophysiology, Neurology, Vascular Neurology and Sleep Medicine [facility]-Neurology, [place], [place] [phone] Motor NCS Nerve / Sites Muscle Latency Amplitude Distance Velocity ms mV cm m/s R Deep peroneal (Fibular) - EDB Ankle EDB 5.23 3.0 8.5 Fib Head EDB 11.85 2.6 29.5 44.5 Knee EDB 13.54 3.1 7 41.5 L Deep peroneal (Fibular) - EDB Ankle EDB 5.33 3.3 8.5 Fib Head EDB 12.17 3.1 30 43.9 Knee EDB 13.52 3.1 7 51.7 R Tibial - AH Ankle AH 4.04 6.4 8 Knee AH 13.85 5.8 40 40.8 L Tibial - AH Ankle AH 4.69 7.7 8 Knee AH 13.40 5.4 38.5 44.2 Sensory NCS Nerve / Sites Peak Amp Amp.2-3 Distance Velocity ms V V cm m/s R Sural - Lat Mall Calf 3.75 13.6 4.8 14 54 L Sural - Lat Mall Calf 3.83 10.7 5.0 14 56 R Superficial peroneal - Ankle Lat leg 3.19 7.0 3.1 14 62 L Superficial peroneal - Ankle Lat leg 3.25 13.0 2.0 14 60 H Reflex Nerve H Lat ms R Tibial - Soleus 32.97 L Tibial - Soleus 34.64 EMG Summary Table Spontaneous Activity Amplitude Duration Recruitment Polyphasia Comment Muscle Ins Act Fib PSW Fasc - - - - - L. Vastus lateralis Normal 0 0 0 Normal Normal Normal Normal Normal L. Semitendinosus Normal 0 0 0 Normal Normal Normal Normal Normal L. Tibialis anterior Normal 0 0 0 Normal Normal Normal Normal Normal L. Gastrocnemius (Medial head) Normal 0 0 0 Normal Normal Normal Normal Normal L. Abductor hallucis Normal 0 0 0 Normal Normal Normal Normal Normal L. Lumbar paraspinals Normal 0 0 0 Normal Normal Normal Normal Normal R. Vastus lateralis Normal 0 0 0 Normal Normal Normal Normal Normal R. Semitendinosus Normal 0 0 0 Normal Normal Normal Normal Normal R. Tibialis anterior Normal 0 0 0 Normal Normal Normal Normal Normal R. Gastrocnemius (Medial head) Normal 0 0 0 Normal Normal Normal Normal Normal R. Abductor hallucis Normal 0 0 0 Normal Normal Normal Normal Normal R. Lumbar paraspinals Normal 0 0 0 Normal Normal Normal Normal Normal documented in this encounter [facility] 10-18-2022 History of Present illness Narrative Subjective Patient ID: Isabel Perez is a 67 y.o. female who presents for Follow-up (3 WEEK FOLLOW UP- PREDNISONE COMPLETE. STILL HAVING DIARRHEA AFTER EATING. SEES DIGESTIVE DR NEXT WEEK.). HPI CHRONIC DIARRHEA ,F/U ON HTN . ALTERNATIONS FROM NORMAL STOOL TO LIQUID) ON A DAILY BASIS. FATIGUE, ABDOMINAL BLOATING .HAS BEEN FOLLOWING DAIRY FREE ,GLUTEN FREE DIET. DENIES HAVING ABDOMINAL PAIN ,EXCEPT MILD PAIN 2/10 OF RUQ AND LUQ . PRN ANTICHOLINERGIC CLASS DIDN'T HELP. PENDING LABS FOR UPCOMING GI VISIT. PENDING FOOD ALLERGY TEST IN 1 MONTH. Review of Systems Constitutional: Negative for chills and fever. HENT: Negative. Negative for congestion, postnasal drip and rhinorrhea. Eyes: Negative. Negative for visual disturbance. Respiratory: Negative for cough, shortness of breath and wheezing. Cardiovascular: Negative. Negative for chest pain, palpitations and leg swelling. Gastrointestinal: Positive for diarrhea. Negative for abdominal distention, abdominal pain, constipation, nausea and vomiting. Endocrine: Negative. Genitourinary: Negative for dysuria and urgency. Musculoskeletal: Negative. Negative for back pain. Skin: Negative. Negative for rash. Allergic/Immunologic: Negative for immunocompromised state. Neurological: Negative. Negative for dizziness, weakness, light-headedness and headaches. Psychiatric/Behavioral: Negative. Negative for agitation. Objective Physical Exam Constitutional: General: She is not in acute distress. HENT: Head: Normocephalic. Nose: Nose normal. Mouth/Throat: Mouth: Mucous membranes are moist. Eyes: Conjunctiva/sclera: Conjunctivae normal. Pupils: Pupils are equal, round, and reactive to light. Cardiovascular: Rate and Rhythm: Normal rate and regular rhythm. Pulses: Normal pulses. Heart sounds: Normal heart sounds. Pulmonary: Effort: No respiratory distress. Breath sounds: No wheezing. Chest: Chest wall: No tenderness. Abdominal: General: Abdomen is flat. Bowel sounds are normal. Palpations: Abdomen is soft. Tenderness: There is abdominal tenderness. Comments: RUQ AND LUQ TENDERNESS (AT THE FAR CORNERS OF ABDOMEN, ON BOTH SIDES) . Musculoskeletal: General: No tenderness. Normal range of motion. Cervical back: Normal range of motion. Lymphadenopathy: Cervical: No cervical adenopathy. Skin: General: Skin is warm and dry. Findings: No rash. Neurological: General: No focal deficit present. Mental Status: She is alert. Mental status is at baseline. Psychiatric: Mood and Affect: Mood normal. Behavior: Behavior normal. Assessment/Plan Problem List Items Addressed This Visit Circulatory Benign essential HTN Digestive Bariatric surgery status Chronic diarrhea - Primary Chronic gastritis Other Abdominal bloating ADVISED FOR SMALLER MEAL PORTIONS MORE FREQUENT SERVINGS AND TO HAVE MORE GATORADE ,AND TO HAVE LOW FAT DIET. CUT BACK ON CAFFEINE. Lose weight. Do not overeat. Eat small portions at meals and snacks. Avoid tight clothing and tight-fitting belts. Do not lie down or bend over within the first 15-30 minutes after eating. Do not chew gum or suck on hard candy. Swallowing air with chewing gum and sucking on hard candy can cause belching and reflux. Raise the head of your bed 6-8 inches. Do not eat/drink: chocolate, tomatoes, tomato sauces, oranges, pineapple, grapefruit, mints, coffee, alcohol, carbonated beverages, and black pepper. Eat a low fat diet. Fatty and greasy foods cause your stomach to produce more acid. MDM 1) COMPLEXITY: MORE THAN 1 STABLE CHRONIC CONDITION ADDRESSED 2)DATA: TESTS INTERPRETED AND OR ORDERED, TOOK INDEPENDENT HISTORY OR RECORDS REVIEWED 3)RISK: MODERATE RISK DUE TO NATURE OF MEDICAL CONDITIONS/COMORBIDITY OR MEDICATIONS ORDERED OR SURGICAL OR PROCEDURE REFERRAL, . 3 weeks documented in this encounter [facility] Work Phone: 08-02-2022 History of Present illness Narrative PASSING LARGE AMOUNT OF BRIGHT RED BLOOD PER RECTUM LAST WEEK W/O PASSING THE STOOL . HAD DIARRHEA EARLIER . DENIES HAVING ABDOMINAL PAIN OR DIZZINESS. HAS BEEN TAKING THE OTC ASA 81 MG DAILY FOR FAMILY H/O CAD. CURRENTLY DOESN'T TAKE THE IRON SUPPLEMENT . NAUSEA OR VOMITING. [facility] Work Phone: 05-22-2022 History of Present illness Narrative PASSING LARGE AMOUNT OF BRIGHT RED BLOOD PER RECTUM LAST WEEK W/O PASSING THE STOOL . HAD DIARRHEA EARLIER . DENIES HAVING ABDOMINAL PAIN OR DIZZINESS. HAS BEEN TAKING THE OTC ASA 81 MG DAILY FOR FAMILY H/O CAD. CURRENTLY DOESN'T TAKE THE IRON SUPPLEMENT . NAUSEA OR VOMITING. [facility] Work Phone: 05-21-2022 History of Present illness Narrative PASSING LARGE AMOUNT OF BRIGHT RED BLOOD PER RECTUM LAST WEEK W/O PASSING THE STOOL . HAD DIARRHEA EARLIER . DENIES HAVING ABDOMINAL PAIN OR DIZZINESS. HAS BEEN TAKING THE OTC ASA 81 MG DAILY FOR FAMILY H/O CAD. CURRENTLY DOESN'T TAKE THE IRON SUPPLEMENT . NAUSEA OR VOMITING. [facility] Work Phone: 10-22-2021 History of Present illness Narrative F/U ON EGD AND COLONOSCOPY . COMPLAINS OF R LOWE ABDOMINAL AND SUPRAPUBIC PAIN ON AND OFF 10/22 X SEVERAL DAYS. [facility] Work Phone: 05-15-2021 Chief complaint Narrative - Reported An interactive audio and video telecommunication system which permits real time communications between the patient (at the originating site) and provider (at the distant site) was utilized to provide this telehealth service.Verbal consent was requested and obtained from ISABEL PEREZ on this date, 05/15/2021 09:00 AM , for a telehealth visit.VIRTUAL VISIT - 6 DAY F/U COVID. PATIENT STATES SHE IS FEELING MUCH BETTER. STILL HAS COUGH AND FATIGUE - USING ROBITUSSIN AND TESSALON PRN. [facility] Work Phone: 05-15-2021 Chief complaint Narrative - Reported An interactive audio and video telecommunication system which permits real time communications between the patient (at the originating site) and provider (at the distant site) was utilized to provide this telehealth service.Verbal consent was requested and obtained from ISABEL PEREZ on this date, 05/15/2021 09:00 AM , for a telehealth visit.VIRTUAL VISIT - 6 DAY F/U COVID. PATIENT STATES SHE IS FEELING MUCH BETTER. STILL HAS COUGH AND FATIGUE - USING ROBITUSSIN AND TESSALON PRN. [facility] Work Phone: [facility] Diagnosis Chronic diarrhea- Primary Diarrhea Benign essential HTN Abdominal bloating Flatulence, eructation, and gas pain Bariatric surgery status Chronic gastritis without bleeding, unspecified gastritis type Chronic fatigue Other malaise and fatigue documented in this encounter [facility] Work Phone: Evaluation note* Diagnosis Numbness- Primary Disturbance of skin sensation [facility] Diagnosis Benign essential HTN- Primary Cold sensitivity Other general symptoms Impaired fasting glucose S/P laparoscopic cholecystectomy Other postprocedural status documented in this encounter [facility] Work Phone: Evaluation note* Diagnosis Other idiopathic peripheral autonomic neuropathy- Primary Hammer toes, bilateral Lumbar back pain with radiculopathy affecting lower extremity [facility] Diagnosis Routine general medical examination at health care facility- Primary Routine general medical examination at a health care facility Encounter for screening mammogram for breast cancer Postmenopausal Asymptomatic postmenopausal status (age-related) (natural) Left elbow pain Pain in joint, upper arm History of trauma Chronic diarrhea Diarrhea S/P laparoscopic cholecystectomy Other postprocedural status Benign essential HTN Glucose intolerance documented in this encounter [facility] Work Phone: Evaluation note* Diagnosis Lumbar back pain with radiculopathy affecting lower extremity- Primary Other idiopathic peripheral autonomic neuropathy Hammer toes, bilateral [facility] Diagnosis Acquired hammer toe deformity of lesser toe of right foot- Primary Other idiopathic peripheral autonomic neuropathy Lumbar back pain with radiculopathy affecting lower extremity [facility] Diagnosis Bunion of great toe of right foot- Primary Bunion Acquired hammer toe deformity of lesser toe of right foot Acquired hammer toe deformity of lesser toe of right foot [facility] Diagnosis Lumbar back pain with radiculopathy affecting lower extremity- Primary Bunion of right foot Bunion Acquired hammertoe of right foot Acquired hammer toe deformity of lesser toe of right foot- Primary Acquired hammer toe deformity of lesser toe of right foot [facility] Diagnosis Chronic diarrhea- Primary Diarrhea Gastroesophageal reflux disease without esophagitis Esophageal reflux S/P laparoscopic cholecystectomy Other postprocedural status Bariatric surgery status Poor appetite Anorexia Benign essential HTN Allergic rhinitis, unspecified seasonality, unspecified trigger Chronic fatigue Other malaise and fatigue Weight loss Loss of weight documented in this encounter [facility] Work Phone: Evaluation note* Diagnosis Acquired hammer toe deformity of lesser toe of right foot- Primary Bunion of great toe of right foot Bunion Lumbar back pain with radiculopathy affecting lower extremity [facility] Diagnosis Chronic diarrhea Diarrhea S/P laparoscopic cholecystectomy Other postprocedural status Gastroesophageal reflux disease without esophagitis Esophageal reflux Bariatric surgery status Poor appetite Anorexia documented in this encounter [facility] Work Phone: Evaluation note* Diagnosis Gastroesophageal reflux disease, unspecified whether esophagitis present- Primary GERD (gastroesophageal reflux disease) Esophageal reflux documented in this encounter [facility] Work Phone: History of Present illness NarrativeLAB F/U ,WHICH WASN'T DONE. WORSENING GERD WITH DUMPING SYN. S/P REMOTE BARIATRIC SURGERY. ABDOMINAL BLOATING.[facility] Work Phone: History of Present illness NarrativeF/U ON LABS, BONE DENSITY AND MAMMO. HAS NO COMPLAINTS. BP AT HOME IS 120/70.[facility] Work Phone: History of Present illness NarrativeF/U ON LABS, BONE DENSITY AND MAMMO. HAS NO COMPLAINTS. BP AT HOME IS 120/70.[facility] Work Phone: History of Present illness Narrative* VIRTUAL VISIT DUE TO COVID19 . * F/U ON COVID INFECTION .SOB IMPROVED , COUGH IS BACK TO BASELINE WITH HAVING ASTHMA. HAD 14 DAYS OFQUARANTINE , PT HAD DOSAGES OF COVID VACCINE , ENDING THE BOOSTER VACCINE . [facility] Work Phone: History of Present illness NarrativeF/U ON HTN , HAS NO COMPLAINTS.[facility] Work Phone: History of Present illness NarrativeWATERY DIARRHEA FOR MONTHS WITH ABDOMINAL BLOATING AND CRAMPING . DIARRHEA HAS NO RELATIONSHIP WITHFOOD. CLEAR WATERY EYES X 2 WEEKS W/O CHANGE IN VISION OR PAIN.[facility] Work Phone: History of Present illness NarrativeF/U ON CT OF ABDOMEN AND PELVIS. HAD LUQ ABDOMINAL PAIN 3/10 ON AND OFF WITH BLOATING. LLQ PAIN IS RESOLVED. PRN LEVSIN HELPS WITH DIARRHEA . CHRONIC FATIGUE.[facility] Work Phone: History of Present illness NarrativeLAB F/U WHICH WASN'T DONE . DRY MOUTH , WEIGHT LOSS. CHRONIC DIARRHEA IS IMPROVING , PT NOTICED THAT HAS INTOLERANCE TO SOME FOODS AND BY ELIMINATING THEM DIARRHEA IS IMPROVING . WEIGHT LOSS, FATIGUE.[facility] Work Phone: History of Present illness Narrative* Past Medical, Surgical and Family History: reviewed and updated in chart. * Medications and Supplements: Review of all medications by a prescribing practitioner or clinical pharmacist (such as prescriptions, OTC's, herbal therapies and supplements) documented in the medical record. * No, the patient is not using opioids. * Tobacco use: Non-User * Alcohol use: User * Illicit drug use: Non-User * Current diet: heart healthy diet. * Exercise Frequency: regular * Depression Screening: * Patient Health Questionnaire - 2 (PHQ-2):. * During the past 2 weeks, the patient has not felt down, depressed or hopeless. * During the past 2 weeks, the patient has not felt little interest or pleasure in doing things. * Hearing Impairment: none. * Visual Acuity: IO Vision Screening in results section * Visual Acuity Corrected: right eye 20/25, left eye 20/25. * Visual Acuity Uncorrected: right eye 20/40, left eye 20/50. * Cognitive Impairment: No cognitive impairment observed. * Activities of Daily Living: She does not have issues with activities of daily living (e.g. dressing, bathing, walking, shopping, housekeeping, etc.). * Falls Risk Screening: ISABEL has fallen in the last 6 months. Her fall did not result in injury. * Home safety risk factors: None. [facility] Work Phone: History of Present illness Narrative* Past Medical, Surgical and Family History: reviewed and updated in chart. * Medications and Supplements: Review of all medications by a prescribing practitioner or clinical pharmacist (such as prescriptions, OTC's, herbal therapies and supplements) documented in the medical record. * No, the patient is not using opioids. * Tobacco use: Non-User * Alcohol use: User * Illicit drug use: Non-User * Current diet: heart healthy diet. * Exercise Frequency: regular * Depression Screening: * Patient Health Questionnaire - 2 (PHQ-2):. * During the past 2 weeks, the patient has not felt down, depressed or hopeless. * During the past 2 weeks, the patient has not felt little interest or pleasure in doing things. * Hearing Impairment: none. * Visual Acuity: Vision Screening in results section * Visual Acuity Corrected: both eyes 20/20/25, right eye 20/25, left eye 20/25. * Visual Acuity Uncorrected: both eyes 20/20/40, right eye 20/40, left eye 20/50. * Cognitive Impairment: No cognitive impairment observed. * Activities of Daily Living: She does not have issues with activities of daily living (e.g. dressing, bathing, walking, shopping, housekeeping, etc.). * Falls Risk Screening: ISABEL has fallen in the last 6 months. Her fall did not result in injury. * Fall risk factors: no polypharmacy, no sedative use, no urinary incontinence, no visual impairment,no mobility impairment, no alcohol use, no deconditioning, no cognitive impairment, no antihypertensive use, no postural hypotension, up and go test was normal and no antidepressant use. * Care Plan Low/Moderate Risk: Regular physical activity such as walking, water aerobics or dick chi to improve strength, balance, coordination and flexibility. Wear appropriate, sensible shoe wear. Remove fall hazards at home such as loose rugs, obstacles, use non-slip surface in bath or shower. Keep living space well lit. * Home safety risk factors: None. * Patient's End of Life Decisions: I agree to follow the patient's decisions. * LAB F/U . COMPLAINS OF CHRONIC RLQ ABDOMINAL PAIN 5/10 ON AND OFF , S/P APPENDECTOMY YEARS AGO.[employer]ICARE WELLNESS (FIRST VISIT). WORSENING CHRONIC NUMBNESS AND TINGLING OF FEET WITH PAIN 3-4/10.S/P FALL 4 MONTHS AGO BECAUSE OF HAVING NUMBNESS OF FEET. [facility] Work Phone: History of Present illness NarrativeF/U ON HTN AND U/S OF ABDOMEN AND PELVIS. HAS CHRONIC FATIGUE. CAN TOLERATE THE LOW DOSAGE OF OTC IRON HAS CHRONIC R FLANK PAIN WITH ABDOMINAL BLOATING .PT IS TRYING TO ELIMINATE THE DAIRIES ,WHICH HELPS SOME. HAS NO URINE COMPLAINTS.[facility] Work Phone: Summary Purpose Family History No Family History Records Found aunt Name Dates Details Family history of malignant neoplasm of breast(V16.3, Z80.3) Status:Active great grandmother Name Dates Details Family history of malignant neoplasm of stomach(V16.0, Z80.0) Status:Active Mother Name Dates Details Family history of cardiac di sorder(V17.49, Z82.49) Status:Active Father Name Dates Details Family history of malignant neoplasm of prostate(V16.42, Z80.42) Status:Active Family history of hypertensi on(V17.49, Z82.49) Status:Active Family history of diabetes m ellitus(V18.0, Z83.3) Status:Active Family history of lung cance r(V16.1, Z80.1) Status:Active Sister Name Dates Details Family history of hypothyroi dism(V18.19, Z83.49) Status:Active aunt Name Dates Details Family history of malignant neoplasm of breast(V16.3, Z80.3) Status:Active great grandmother Name Dates Details Family history of malignant neoplasm of stomach(V16.0, Z80.0) Status:Active Mother Name Dates Details Family history of cardiac di sorder(V17.49, Z82.49) Status:Active Father Name Dates Details Family history of malignant neoplasm of prostate(V16.42, Z80.42) Status:Active Family history of hypertensi on(V17.49, Z82.49) Status:Active Family history of diabetes m ellitus(V18.0, Z83.3) Status:Active Family history of lung cance r(V16.1, Z80.1) Status:Active Sister Name Dates Details Family history of hypothyroi dism(V18.19, Z83.49) Status:Active aunt Name Dates Details Family history of malignant neoplasm of breast(V16.3, Z80.3) Status:Active great grandmother Name Dates Details Family history of malignant neoplasm of stomach(V16.0, Z80.0) Status:Active Mother Name Dates Details Family history of cardiac di sorder(V17.49, Z82.49) Status:Active Father Name Dates Details Family history of malignant neoplasm of prostate(V16.42, Z80.42) Status:Active Family history of hypertensi on(V17.49, Z82.49) Status:Active Family history of diabetes m ellitus(V18.0, Z83.3) Status:Active Family history of lung cance r(V16.1, Z80.1) Status:Active Sister Name Dates Details Family history of hypothyroi dism(V18.19, Z83.49) Status:Active aunt Name Dates Details Family history of malignant neoplasm of breast(V16.3, Z80.3) Status:Active great grandmother Name Dates Details Family history of malignant neoplasm of stomach(V16.0, Z80.0) Status:Active Mother Name Dates Details Family history of cardiac di sorder(V17.49, Z82.49) Status:Active Father Name Dates Details Family history of malignant neoplasm of prostate(V16.42, Z80.42) Status:Active Family history of hypertensi on(V17.49, Z82.49) Status:Active Family history of diabetes m ellitus(V18.0, Z83.3) Status:Active Family history of lung cance r(V16.1, Z80.1) Status:Active Sister Name Dates Details Family history of hypothyroi dism(V18.19, Z83.49) Status:Active aunt Name Dates Details Family history of malignant neoplasm of breast(V16.3, Z80.3) Status:Active great grandmother Name Dates Details Family history of malignant neoplasm of stomach(V16.0, Z80.0) Status:Active Mother Name Dates Details Family history of cardiac di sorder(V17.49, Z82.49) Status:Active Father Name Dates Details Family history of malignant neoplasm of prostate(V16.42, Z80.42) Status:Active Family history of hypertensi on(V17.49, Z82.49) Status:Active Family history of diabetes m ellitus(V18.0, Z83.3) Status:Active Family history of lung cance r(V16.1, Z80.1) Status:Active Sister Name Dates Details Family history of hypothyroi dism(V18.19, Z83.49) Status:Active aunt Name Dates Details Family history of malignant neoplasm of breast(V16.3, Z80.3) Status:Active great grandmother Name Dates Details Family history of malignant neoplasm of stomach(V16.0, Z80.0) Status:Active Mother Name Dates Details Family history of cardiac di sorder(V17.49, Z82.49) Status:Active Father Name Dates Details Family history of lung cance r(V16.1, Z80.1) Status:Active Family history of diabetes m ellitus(V18.0, Z83.3) Status:Active Family history of malignant neoplasm of prostate(V16.42, Z80.42) Status:Active Family history of hypertensi on(V17.49, Z82.49) Status:Active Sister Name Dates Details Family history of hypothyroi dism(V18.19, Z83.49) Status:Active aunt Name Dates Details Family history of malignant neoplasm of breast(V16.3, Z80.3) Status:Active great grandmother Name Dates Details Family history of malignant neoplasm of stomach(V16.0, Z80.0) Status:Active Mother Name Dates Details Family history of cardiac di sorder(V17.49, Z82.49) Status:Active Father Name Dates Details Family history of malignant neoplasm of prostate(V16.42, Z80.42) Status:Active Family history of hypertensi on(V17.49, Z82.49) Status:Active Family history of diabetes m ellitus(V18.0, Z83.3) Status:Active Family history of lung cance r(V16.1, Z80.1) Status:Active Sister Name Dates Details Family history of hypothyroi dism(V18.19, Z83.49) Status:Active Unknown Family Member Name Dates Details Family history of cardiac di sorder: Mother(V17.49, Z82.49) Status:Active Family history of malignant neoplasm of prostate: Father(V16.42, Z80.42) Status:Active Family history of hypertensi on: Father(V17.49, Z82.49) Status:Active Family history of hypothyroi dism: Sister(V18.19, Z83.49) Status:Active Family history of malignant neoplasm of stomach: Maternal Great Grandmother(V16.0, Z80.0) Status:Active Family history of malignant neoplasm of breast: Maternal Aunt(V16.3, Z80.3) Status:Active Family history of diabetes m ellitus: Father(V18.0, Z83.3) Status:Active Family history of lung cance r: Father(V16.1, Z80.1) Status:Active Unknown Family Member Name Dates Details Family history of cardiac di sorder: Mother(V17.49, Z82.49) Status:Active Family history of malignant neoplasm of prostate: Father(V16.42, Z80.42) Status:Active Family history of hypertensi on: Father(V17.49, Z82.49) Status:Active Family history of hypothyroi dism: Sister(V18.19, Z83.49) Status:Active Family history of malignant neoplasm of stomach: Maternal Great Grandmother(V16.0, Z80.0) Status:Active Family history of malignant neoplasm of breast: Maternal Aunt(V16.3, Z80.3) Status:Active Family history of diabetes m ellitus: Father(V18.0, Z83.3) Status:Active Family history of lung cance r: Father(V16.1, Z80.1) Status:Active Unknown Family Member Name Dates Details Family history of cardiac di sorder: Mother(V17.49, Z82.49) Status:Active Family history of malignant neoplasm of prostate: Father(V16.42, Z80.42) Status:Active Family history of hypertensi on: Father(V17.49, Z82.49) Status:Active Family history of hypothyroi dism: Sister(V18.19, Z83.49) Status:Active Family history of malignant neoplasm of stomach: Maternal Great Grandmother(V16.0, Z80.0) Status:Active Family history of malignant neoplasm of breast: Maternal Aunt(V16.3, Z80.3) Status:Active Family history of diabetes m ellitus: Father(V18.0, Z83.3) Status:Active Family history of lung cance r: Father(V16.1, Z80.1) Status:Active Unknown Family Member Name Dates Details Family history of cardiac di sorder: Mother(V17.49, Z82.49) Status:Active Family history of malignant neoplasm of prostate: Father(V16.42, Z80.42) Status:Active Family history of hypertensi on: Father(V17.49, Z82.49) Status:Active Family history of hypothyroi dism: Sister(V18.19, Z83.49) Status:Active Family history of malignant neoplasm of stomach: Maternal Great Grandmother(V16.0, Z80.0) Status:Active Family history of malignant neoplasm of breast: Maternal Aunt(V16.3, Z80.3) Status:Active Family history of diabetes m ellitus: Father(V18.0, Z83.3) Status:Active Family history of lung cance r: Father(V16.1, Z80.1) Status:Active Unknown Family Member Name Dates Details Family history of cardiac di sorder: Mother(V17.49, Z82.49) Status:Active Family history of malignant neoplasm of prostate: Father(V16.42, Z80.42) Status:Active Family history of hypertensi on: Father(V17.49, Z82.49) Status:Active Family history of hypothyroi dism: Sister(V18.19, Z83.49) Status:Active Family history of malignant neoplasm of stomach: Maternal Great Grandmother(V16.0, Z80.0) Status:Active Family history of malignant neoplasm of breast: Maternal Aunt(V16.3, Z80.3) Status:Active Family history of diabetes m ellitus: Father(V18.0, Z83.3) Status:Active Family history of lung cance r: Father(V16.1, Z80.1) Status:Active Unknown Family Member Name Dates Details Family history of cardiac di sorder: Mother(V17.49, Z82.49) Status:Active Family history of malignant neoplasm of prostate: Father(V16.42, Z80.42) Status:Active Family history of hypertensi on: Father(V17.49, Z82.49) Status:Active Family history of hypothyroi dism: Sister(V18.19, Z83.49) Status:Active Family history of malignant neoplasm of stomach: Maternal Great Grandmother(V16.0, Z80.0) Status:Active Family history of malignant neoplasm of breast: Maternal Aunt(V16.3, Z80.3) Status:Active Family history of diabetes m ellitus: Father(V18.0, Z83.3) Status:Active Family history of lung cance r: Father(V16.1, Z80.1) Status:Active Unknown Family Member Name Dates Details Family history of cardiac di sorder: Mother(V17.49, Z82.49) Status:Active Family history of malignant neoplasm of prostate: Father(V16.42, Z80.42) Status:Active Family history of hypertensi on: Father(V17.49, Z82.49) Status:Active Family history of hypothyroi dism: Sister(V18.19, Z83.49) Status:Active Family history of malignant neoplasm of stomach: Maternal Great Grandmother(V16.0, Z80.0) Status:Active Family history of malignant neoplasm of breast: Maternal Aunt(V16.3, Z80.3) Status:Active Family history of diabetes m ellitus: Father(V18.0, Z83.3) Status:Active Family history of lung cance r: Father(V16.1, Z80.1) Status:Active Unknown Family Member Name Dates Details Family history of cardiac di sorder: Mother(V17.49, Z82.49) Status:Active Family history of malignant neoplasm of prostate: Father(V16.42, Z80.42) Status:Active Family history of hypertensi on: Father(V17.49, Z82.49) Status:Active Family history of hypothyroi dism: Sister(V18.19, Z83.49) Status:Active Family history of malignant neoplasm of stomach: Maternal Great Grandmother(V16.0, Z80.0) Status:Active Family history of malignant neoplasm of breast: Maternal Aunt(V16.3, Z80.3) Status:Active Family history of diabetes m ellitus: Father(V18.0, Z83.3) Status:Active Family history of lung cance r: Father(V16.1, Z80.1) Status:Active Unknown Family Member Name Dates Details Family history of cardiac di sorder: Mother(V17.49, Z82.49) Status:Active Family history of malignant neoplasm of prostate: Father(V16.42, Z80.42) Status:Active Family history of hypertensi on: Father(V17.49, Z82.49) Status:Active Family history of hypothyroi dism: Sister(V18.19, Z83.49) Status:Active Family history of malignant neoplasm of stomach: Maternal Great Grandmother(V16.0, Z80.0) Status:Active Family history of malignant neoplasm of breast: Maternal Aunt(V16.3, Z80.3) Status:Active Family history of diabetes m ellitus: Father(V18.0, Z83.3) Status:Active Family history of lung cance r: Father(V16.1, Z80.1) Status:Active Unknown Family Member Name Dates Details Family history of cardiac di sorder: Mother(V17.49, Z82.49) Status:Active Family history of malignant neoplasm of prostate: Father(V16.42, Z80.42) Status:Active Family history of hypertensi on: Father(V17.49, Z82.49) Status:Active Family history of hypothyroi dism: Sister(V18.19, Z83.49) Status:Active Family history of malignant neoplasm of stomach: Maternal Great Grandmother(V16.0, Z80.0) Status:Active Family history of malignant neoplasm of breast: Maternal Aunt(V16.3, Z80.3) Status:Active Family history of diabetes m ellitus: Father(V18.0, Z83.3) Status:Active Family history of lung cance r: Father(V16.1, Z80.1) Status:Active Unknown Family Member Name Dates Details Family history of cardiac di sorder: Mother(V17.49, Z82.49) Status:Active Family history of malignant neoplasm of prostate: Father(V16.42, Z80.42) Status:Active Family history of hypertensi on: Father(V17.49, Z82.49) Status:Active Family history of hypothyroi dism: Sister(V18.19, Z83.49) Status:Active Family history of malignant neoplasm of stomach: Maternal Great Grandmother(V16.0, Z80.0) Status:Active Family history of malignant neoplasm of breast: Maternal Aunt(V16.3, Z80.3) Status:Active Family history of diabetes m ellitus: Father(V18.0, Z83.3) Status:Active Family history of lung cance r: Father(V16.1, Z80.1) Status:Active Unknown Family Member Name Dates Details Family history of cardiac di sorder: Mother(V17.49, Z82.49) Status:Active Family history of malignant neoplasm of prostate: Father(V16.42, Z80.42) Status:Active Family history of hypertensi on: Father(V17.49, Z82.49) Status:Active Family history of hypothyroi dism: Sister(V18.19, Z83.49) Status:Active Family history of malignant neoplasm of stomach: Maternal Great Grandmother(V16.0, Z80.0) Status:Active Family history of malignant neoplasm of breast: Maternal Aunt(V16.3, Z80.3) Status:Active Family history of diabetes m ellitus: Father(V18.0, Z83.3) Status:Active Family history of lung cance r: Father(V16.1, Z80.1) Status:Active Unknown Family Member Name Dates Details Family history of cardiac di sorder: Mother(V17.49, Z82.49) Status:Active Family history of malignant neoplasm of prostate: Father(V16.42, Z80.42) Status:Active Family history of hypertensi on: Father(V17.49, Z82.49) Status:Active Family history of hypothyroi dism: Sister(V18.19, Z83.49) Status:Active Family history of malignant neoplasm of stomach: Maternal Great Grandmother(V16.0, Z80.0) Status:Active Family history of malignant neoplasm of breast: Maternal Aunt(V16.3, Z80.3) Status:Active Family history of diabetes m ellitus: Father(V18.0, Z83.3) Status:Active Family history of lung cance r: Father(V16.1, Z80.1) Status:Active Unknown Family Member Name Dates Details Family history of cardiac di sorder: Mother(V17.49, Z82.49) Status:Active Family history of malignant neoplasm of prostate: Father(V16.42, Z80.42) Status:Active Family history of hypertensi on: Father(V17.49, Z82.49) Status:Active Family history of hypothyroi dism: Sister(V18.19, Z83.49) Status:Active Family history of malignant neoplasm of stomach: Maternal Great Grandmother(V16.0, Z80.0) Status:Active Family history of malignant neoplasm of breast: Maternal Aunt(V16.3, Z80.3) Status:Active Family history of diabetes m ellitus: Father(V18.0, Z83.3) Status:Active Family history of lung cance r: Father(V16.1, Z80.1) Status:Active Unknown Family Member Name Dates Details Family history of cardiac di sorder: Mother(V17.49, Z82.49) Status:Active Family history of malignant neoplasm of prostate: Father(V16.42, Z80.42) Status:Active Family history of hypertensi on: Father(V17.49, Z82.49) Status:Active Family history of hypothyroi dism: Sister(V18.19, Z83.49) Status:Active Family history of malignant neoplasm of stomach: Maternal Great Grandmother(V16.0, Z80.0) Status:Active Family history of malignant neoplasm of breast: Maternal Aunt(V16.3, Z80.3) Status:Active Family history of diabetes m ellitus: Father(V18.0, Z83.3) Status:Active Family history of lung cance r: Father(V16.1, Z80.1) Status:Active Unknown Family Member Name Dates Details Family history of cardiac di sorder: Mother(V17.49, Z82.49) Status:Active Family history of malignant neoplasm of prostate: Father(V16.42, Z80.42) Status:Active Family history of hypertensi on: Father(V17.49, Z82.49) Status:Active Family history of hypothyroi dism: Sister(V18.19, Z83.49) Status:Active Family history of malignant neoplasm of stomach: Maternal Great Grandmother(V16.0, Z80.0) Status:Active Family history of malignant neoplasm of breast: Maternal Aunt(V16.3, Z80.3) Status:Active Family history of diabetes m ellitus: Father(V18.0, Z83.3) Status:Active Family history of lung cance r: Father(V16.1, Z80.1) Status:Active Unknown Family Member Name Dates Details Family history of cardiac di sorder: Mother(V17.49, Z82.49) Status:Active Family history of malignant neoplasm of prostate: Father(V16.42, Z80.42) Status:Active Family history of hypertensi on: Father(V17.49, Z82.49) Status:Active Family history of hypothyroi dism: Sister(V18.19, Z83.49) Status:Active Family history of malignant neoplasm of stomach: Maternal Great Grandmother(V16.0, Z80.0) Status:Active Family history of malignant neoplasm of breast: Maternal Aunt(V16.3, Z80.3) Status:Active Family history of diabetes m ellitus: Father(V18.0, Z83.3) Status:Active Family history of lung cance r: Father(V16.1, Z80.1) Status:Active Unknown Family Member Name Dates Details Family history of cardiac di sorder: Mother(V17.49, Z82.49) Status:Active Family history of malignant neoplasm of prostate: Father(V16.42, Z80.42) Status:Active Family history of hypertensi on: Father(V17.49, Z82.49) Status:Active Family history of hypothyroi dism: Sister(V18.19, Z83.49) Status:Active Family history of malignant neoplasm of stomach: Maternal Great Grandmother(V16.0, Z80.0) Status:Active Family history of malignant neoplasm of breast: Maternal Aunt(V16.3, Z80.3) Status:Active Family history of diabetes m ellitus: Father(V18.0, Z83.3) Status:Active Family history of lung cance r: Father(V16.1, Z80.1) Status:Active Unknown Family Member Name Dates Details Family history of cardiac di sorder: Mother(V17.49, Z82.49) Status:Active Family history of malignant neoplasm of prostate: Father(V16.42, Z80.42) Status:Active Family history of hypertensi on: Father(V17.49, Z82.49) Status:Active Family history of hypothyroi dism: Sister(V18.19, Z83.49) Status:Active Family history of malignant neoplasm of stomach: Maternal Great Grandmother(V16.0, Z80.0) Status:Active Family history of malignant neoplasm of breast: Maternal Aunt(V16.3, Z80.3) Status:Active Family history of diabetes m ellitus: Father(V18.0, Z83.3) Status:Active Family history of lung cance r: Father(V16.1, Z80.1) Status:Active Unknown Family Member Name Dates Details Family history of cardiac di sorder: Mother(V17.49, Z82.49) Status:Active Family history of malignant neoplasm of prostate: Father(V16.42, Z80.42) Status:Active Family history of hypertensi on: Father(V17.49, Z82.49) Status:Active Family history of hypothyroi dism: Sister(V18.19, Z83.49) Status:Active Family history of malignant neoplasm of stomach: Maternal Great Grandmother(V16.0, Z80.0) Status:Active Family history of malignant neoplasm of breast: Maternal Aunt(V16.3, Z80.3) Status:Active Family history of diabetes m ellitus: Father(V18.0, Z83.3) Status:Active Family history of lung cance r: Father(V16.1, Z80.1) Status:Active Unknown Family Member Name Dates Details Family history of cardiac di sorder: Mother(V17.49, Z82.49) Status:Active Family history of malignant neoplasm of prostate: Father(V16.42, Z80.42) Status:Active Family history of hypertensi on: Father(V17.49, Z82.49) Status:Active Family history of hypothyroi dism: Sister(V18.19, Z83.49) Status:Active Family history of malignant neoplasm of stomach: Maternal Great Grandmother(V16.0, Z80.0) Status:Active Family history of malignant neoplasm of breast: Maternal Aunt(V16.3, Z80.3) Status:Active Family history of diabetes m ellitus: Father(V18.0, Z83.3) Status:Active Family history of lung cance r: Father(V16.1, Z80.1) Status:Active Unknown Family Member Name Dates Details Family history of cardiac di sorder: Mother(V17.49, Z82.49) Status:Active Family history of malignant neoplasm of prostate: Father(V16.42, Z80.42) Status:Active Family history of hypertensi on: Father(V17.49, Z82.49) Status:Active Family history of hypothyroi dism: Sister(V18.19, Z83.49) Status:Active Family history of malignant neoplasm of stomach: Maternal Great Grandmother(V16.0, Z80.0) Status:Active Family history of malignant neoplasm of breast: Maternal Aunt(V16.3, Z80.3) Status:Active Family history of diabetes m ellitus: Father(V18.0, Z83.3) Status:Active Family history of lung cance r: Father(V16.1, Z80.1) Status:Active Unknown Family Member Name Dates Details Family history of cardiac di sorder: Mother(V17.49, Z82.49) Status:Active Family history of malignant neoplasm of prostate: Father(V16.42, Z80.42) Status:Active Family history of hypertensi on: Father(V17.49, Z82.49) Status:Active Family history of hypothyroi dism: Sister(V18.19, Z83.49) Status:Active Family history of malignant neoplasm of stomach: Maternal Great Grandmother(V16.0, Z80.0) Status:Active Family history of malignant neoplasm of breast: Maternal Aunt(V16.3, Z80.3) Status:Active Family history of diabetes m ellitus: Father(V18.0, Z83.3) Status:Active Family history of lung cance r: Father(V16.1, Z80.1) Status:Active Unknown Family Member Name Dates Details Family history of cardiac di sorder: Mother(V17.49, Z82.49) Status:Active Family history of malignant neoplasm of prostate: Father(V16.42, Z80.42) Status:Active Family history of hypertensi on: Father(V17.49, Z82.49) Status:Active Family history of hypothyroi dism: Sister(V18.19, Z83.49) Status:Active Family history of malignant neoplasm of stomach: Maternal Great Grandmother(V16.0, Z80.0) Status:Active Family history of malignant neoplasm of breast: Maternal Aunt(V16.3, Z80.3) Status:Active Family history of diabetes m ellitus: Father(V18.0, Z83.3) Status:Active Family history of lung cance r: Father(V16.1, Z80.1) Status:Active Unknown Family Member Name Dates Details Family history of cardiac di sorder: Mother(V17.49, Z82.49) Status:Active Family history of malignant neoplasm of prostate: Father(V16.42, Z80.42) Status:Active Family history of hypertensi on: Father(V17.49, Z82.49) Status:Active Family history of hypothyroi dism: Sister(V18.19, Z83.49) Status:Active Family history of malignant neoplasm of stomach: Maternal Great Grandmother(V16.0, Z80.0) Status:Active Family history of malignant neoplasm of breast: Maternal Aunt(V16.3, Z80.3) Status:Active Family history of diabetes m ellitus: Father(V18.0, Z83.3) Status:Active Family history of lung cance r: Father(V16.1, Z80.1) Status:Active Unknown Family Member Name Dates Details Family history of cardiac di sorder: Mother(V17.49, Z82.49) Status:Active Family history of malignant neoplasm of prostate: Father(V16.42, Z80.42) Status:Active Family history of hypertensi on: Father(V17.49, Z82.49) Status:Active Family history of hypothyroi dism: Sister(V18.19, Z83.49) Status:Active Family history of malignant neoplasm of stomach: Maternal Great Grandmother(V16.0, Z80.0) Status:Active Family history of malignant neoplasm of breast: Maternal Aunt(V16.3, Z80.3) Status:Active Family history of diabetes m ellitus: Father(V18.0, Z83.3) Status:Active Family history of lung cance r: Father(V16.1, Z80.1) Status:Active Unknown Family Member Name Dates Details Family history of cardiac di sorder: Mother(V17.49, Z82.49) Status:Active Family history of malignant neoplasm of prostate: Father(V16.42, Z80.42) Status:Active Family history of hypertensi on: Father(V17.49, Z82.49) Status:Active Family history of hypothyroi dism: Sister(V18.19, Z83.49) Status:Active Family history of malignant neoplasm of stomach: Maternal Great Grandmother(V16.0, Z80.0) Status:Active Family history of malignant neoplasm of breast: Maternal Aunt(V16.3, Z80.3) Status:Active Family history of diabetes m ellitus: Father(V18.0, Z83.3) Status:Active Family history of lung cance r: Father(V16.1, Z80.1) Status:Active Unknown Family Member Name Dates Details Family history of cardiac di sorder: Mother(V17.49, Z82.49) Status:Active Family history of malignant neoplasm of prostate: Father(V16.42, Z80.42) Status:Active Family history of hypertensi on: Father(V17.49, Z82.49) Status:Active Family history of hypothyroi dism: Sister(V18.19, Z83.49) Status:Active Family history of malignant neoplasm of stomach: Maternal Great Grandmother(V16.0, Z80.0) Status:Active Family history of malignant neoplasm of breast: Maternal Aunt(V16.3, Z80.3) Status:Active Family history of diabetes m ellitus: Father(V18.0, Z83.3) Status:Active Family history of lung cance r: Father(V16.1, Z80.1) Status:Active Unknown Family Member Name Dates Details Family history of cardiac di sorder: Mother(V17.49, Z82.49) Status:Active Family history of malignant neoplasm of prostate: Father(V16.42, Z80.42) Status:Active Family history of hypertensi on: Father(V17.49, Z82.49) Status:Active Family history of hypothyroi dism: Sister(V18.19, Z83.49) Status:Active Family history of malignant neoplasm of stomach: Maternal Great Grandmother(V16.0, Z80.0) Status:Active Family history of lung cance r: Father(V16.1, Z80.1) Status:Active Family history of diabetes m ellitus: Father(V18.0, Z83.3) Status:Active Family history of malignant neoplasm of breast: Maternal Aunt(V16.3, Z80.3) Status:Active Unknown Family Member Name Dates Details Family history of cardiac di sorder: Mother(V17.49, Z82.49) Status:Active Family history of malignant neoplasm of prostate: Father(V16.42, Z80.42) Status:Active Family history of hypertensi on: Father(V17.49, Z82.49) Status:Active Family history of hypothyroi dism: Sister(V18.19, Z83.49) Status:Active Family history of malignant neoplasm of stomach: Maternal Great Grandmother(V16.0, Z80.0) Status:Active Family history of lung cance r: Father(V16.1, Z80.1) Status:Active Family history of diabetes m ellitus: Father(V18.0, Z83.3) Status:Active Family history of malignant neoplasm of breast: Maternal Aunt(V16.3, Z80.3) Status:Active Unknown Family Member Name Dates Details Family history of cardiac di sorder: Mother(V17.49, Z82.49) Status:Active Family history of malignant neoplasm of prostate: Father(V16.42, Z80.42) Status:Active Family history of hypertensi on: Father(V17.49, Z82.49) Status:Active Family history of hypothyroi dism: Sister(V18.19, Z83.49) Status:Active Family history of malignant neoplasm of stomach: Maternal Great Grandmother(V16.0, Z80.0) Status:Active Family history of malignant neoplasm of breast: Maternal Aunt(V16.3, Z80.3) Status:Active Family history of diabetes m ellitus: Father(V18.0, Z83.3) Status:Active Family history of lung cance r: Father(V16.1, Z80.1) Status:Active Unknown Family Member Name Dates Details Family history of cardiac di sorder: Mother(V17.49, Z82.49) Status:Active Family history of malignant neoplasm of prostate: Father(V16.42, Z80.42) Status:Active Family history of hypertensi on: Father(V17.49, Z82.49) Status:Active Family history of hypothyroi dism: Sister(V18.19, Z83.49) Status:Active Family history of malignant neoplasm of stomach: Maternal Great Grandmother(V16.0, Z80.0) Status:Active Family history of malignant neoplasm of breast: Maternal Aunt(V16.3, Z80.3) Status:Active Family history of diabetes m ellitus: Father(V18.0, Z83.3) Status:Active Family history of lung cance r: Father(V16.1, Z80.1) Status:Active Unknown Family Member Name Dates Details Family history of cardiac di sorder: Mother(V17.49, Z82.49) Status:Active Family history of malignant neoplasm of prostate: Father(V16.42, Z80.42) Status:Active Family history of hypertensi on: Father(V17.49, Z82.49) Status:Active Family history of hypothyroi dism: Sister(V18.19, Z83.49) Status:Active Family history of malignant neoplasm of stomach: Maternal Great Grandmother(V16.0, Z80.0) Status:Active Family history of lung cance r: Father(V16.1, Z80.1) Status:Active Family history of diabetes m ellitus: Father(V18.0, Z83.3) Status:Active Family history of malignant neoplasm of breast: Maternal Aunt(V16.3, Z80.3) Status:Active Advance Directives No Advanced Directives Records FoundDocuments on File Type Date Recorded 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 Advance Directives and Living Will Power 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 Powerplant 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 Documents on File Type Date Recorded 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 ACP-Advance Directive ACP-Power 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 Powerplant Operator Reason for Referral Status Reason Specialty Diagnoses / Procedures Referred By Contact Referred To Contact Authorized Radiology Diagnoses Nontoxic multinodular goiter Procedures US Thyroid Liam Alexander MD [address] [place] [address] [place] [address] Status Reason Specialty Diagnoses / Procedures Referre d By Contact Referred To Contact Open Radiology Diagnoses Nontoxic multinodular goiter Procedures US Guided Thyroid Biopsy Percutaneous Liam Alexander MD [address] [place] [address] Status Reason Specialty Diagnoses / Procedures Referred By Contact Referred To Contact Authorized Radiology Diagnoses Nontoxic multinodular goiter Procedures US Guided Thyroid Biopsy Percutaneous Liam Alexander MD [address] [place] [address] Phone: [place] [address] Status Reason Specialty Diagnoses / Procedures Referre d By Contact Referred To Contact Open Radiology Diagnoses Nontoxic multinodular goiter Procedures US THYROID Jessica Corona, STRATEGIC ALLIANCES MANAGER - SHARE HOLDER [address] [place] [address] Phone: Status Reason Specialty Diagnoses / Procedures Referred By Contact Referred To Contact Authorized Radiology Diagnoses Nontoxic multinodular goiter Procedures US Thyroid Liam Alexander MD [address] [place] [address] Phone: [place] [address] Specialty Diagnoses / Procedures Referred By Contac t Referred To Contact Neurology Diagnoses Numbness and tingling of both feet Naa Mcahado MD [address] [place] [address] Maria Guadalupe Eugene MD [facility] [place] [address] Referral ID Status Reason Start Date Expiration Date V isits Requested Visits Authorized [id number] Authorized 09/27/2022 09/27/2023 1 1 Specialty Diagnoses / Procedures Referred By Contac t Referred To Contact Radiology Diagnoses Left elbow pain History of trauma Procedures XR elbow left 3+ views Naa aMchado MD [address] [place] [address] Referral ID Status Reason Start Date Expiration Date Visits Requested Visits Authorized [id number] Authorized Perform Procedure 04/18/2023 10/15/2023 1 1 Specialty Diagnoses / Procedures Referred By Contac t Referred To Contact Radiology Diagnoses Postmenopausal Procedures XR DEXA bone density aNa Machado MD [address] [place] [address] Referral ID Status Reason Start Date Expiration Date Visits Requested Visits Authorized [id number] Pending Review Perform Procedure 04/18/2023 10/15/2023 1 1 Specialty Diagnoses / Procedures Referred By Contac t Referred To Contact Radiology Diagnoses Encounter for screening mammogram for breast cancer Procedures BI mammo bilateral screening tomosynthesis Naa Machado MD [address] [place] [address] Referral ID Status Reason Start Date Expiration Date Visits Requested Visits Authorized [id number] Authorized Perform Procedure 04/18/2023 10/15/2023 1 1 Specialty Diagnoses / Procedures Referred By Contac t Referred To Contact Pain Management / Pain Medicine Diagnoses Lumbar back pain with radiculopathy affecting lower extremity Dmitriy Morrison, GALILEA [address] [place] [id number] Sundeep Negron DO [address] [place] [address] Referral ID Status Reason Start Date Expiration Date V isits Requested Visits Authorized [id number] Authorized 05/09/2023 05/08/2024 1 1 Specialty Diagnoses / Procedures Referred By Contact Referred To Contact Gastroenterology Diagnoses Gastroesophageal reflux disease without esophagitis Chronic diarrhea S/P laparoscopic cholecystectomy Bariatric surgery status Poor appetite Procedures EGD WY ESOPHAGOGASTRODUODENOSCOPY TRANSORAL DIAGNOSTIC WY EGD TRANSORAL BIOPSY SINGLE/MULTIPLE Naa Machado MD [address] [place] [address] Referral ID Status Reason Start Date Expiration Date V isits Requested Visits Authorized [id number] Pending Review 06/20/2023 06/19/2024 1 1 Specialty Diagnoses / Procedures Referred By Contac t Referred To Contact Gastroenterology Diagnoses Chronic diarrhea S/P laparoscopic cholecystectomy Procedures Colonoscopy Screening; Average Risk Patient WY COLONOSCOPY FLX DX W/COLLJ SPEC WHEN PFRMD WY COLON CA SCRN NOT HI RSK IND WY COLORECTAL SCRN; HI RISK IND WY COLONOSCOPY W/BIOPSY SINGLE/MULTIPLE WY COLSC FLX W/RMVL OF TUMOR POLYP LESION SNARE TQ WY COLSC FLX W/REMOVAL LESION BY HOT BX FORCEPS Naa Machado MD [address] [place] [address] Referral ID Status Reason Start Date Expiration Date V isits Requested Visits Authorized [id number] Pending Review 06/20/2023 06/19/2024 1 1 Referral ID Status Reason Start Date Expiration Date V isits Requested Visits Authorized [id number] Authorized 06/20/2023 06/19/2024 1 1 Specialty Diagnoses / Procedures Referred By Contac t Referred To Contact Aidan Keller MD [address] [place], [place] [id number] Referral ID Status Reason Start Date Expiration Date V isits Requested Visits Authorized [id number] Authorized 08/02/2023 08/01/2024 1 1 Specialty Diagnoses / Procedures Referred By Contact Referred To Contact Gastroenterology Diagnoses GERD (gastroesophageal reflux disease) Procedures EGD WY ESOPHAGOGASTRODUODENOSCOPY TRANSORAL DIAGNOSTIC WY EGD TRANSORAL BIOPSY SINGLE/MULTIPLE Areli Arvizu MD [address] [place] [address] Referral ID Status Reason Start Date Expiration Date V isits Requested Visits Authorized [id number] Pending Review 08/02/2023 08/01/2024 1 1 Specialty Diagnoses / Procedures Referred By Contact Referred To Contact Gastroenterology Diagnoses Gastroesophageal reflux disease, unspecified whether esophagitis present Procedures EGD WY ESOPHAGOGASTRODUODENOSCOPY TRANSORAL DIAGNOSTIC WY EGD TRANSORAL BIOPSY SINGLE/MULTIPLE Areli Arvizu MD [address] [place] [address] Referral ID Status Reason Start Date Expiration Date V isits Requested Visits Authorized [id number] Pending Review 08/02/2023 08/01/2024 1 1 Assessments Diagnosis Nontoxic multinodular goiter Reactive hypoglycemia Hypoglycemia, unspecified Diagnosis Nontoxic multinodular goiter Diagnosis Nontoxic multinodular goiter Discharge Instructions * Attachments The following attachments cannot be sent through Care Everywhere. * Thyroid: Biopsy: Fine-Needle: Post-op (Uzbek) documented in this encounter* Attachments The following attachments cannot be sent through Care Everywhere. * Thyroid Nodules (Uzbek) * Thyroid: Biopsy: Fine-Needle: Post-op (Uzbek) documented in this encounter History of Present Illness * Corky Barbosa, RN - 06/16/2019 10:30 AM EST US guided thyroid biopsy completed. Pt marj well no new co pain post procedure. Band aide applied toneck. Will dc to home documented in this encounter* Duncan Prieto, JEROMY - 04/21/2019 12:25 PM EDT Ultrasound: This patient is here as a Direct Admit Outpatient for a Thyroid Bioposy . She verbalizes understanding of the procedural instructions. Dr. Chambers has spoken to her. History, allergies, medications and lab results reviewed. Informed consent signed. Prepped and draped in sterile fashion. Time out was performed. She is on a monitor. Tolerated the procedure well. She is in no distress. Band aid to her right neck puncture site. No bleeding. No hematoma. She is applying a cold compress to the site. Home going instructions given. Discharge to home. documented in this encounter Chief Complaint 6 MONTH F/U (NO LABS DONE). TAKING AMLODIPINE 1/2 BID1 MO FU LAB AND BONE DENSITY OMEPRAZOLE IS WORKING FOR HER STOMACH ISSUES SHE DOES FLU VACCINE WITH PHARMACY1 MO FU LAB AND BONE DENSITY OMEPRAZOLE IS WORKING FOR HER STOMACH ISSUES SHE DOES FLU VACCINE WITHPHARMACY1.5 MO F/U BP CHECKC/O DIGESTIVE ISSUES- DIARRHEA OFF/ON WITH ABDOMINAL CRAMPING AND BLOATING-HAS MULTIPLE STOMACH SURGE RY. C/O L EYE WATERY2 WK F/U CT/MED CHECK AND ABD PAIN-NO NEW COMPLAINTS TODAY7 MO F/U DID NOT DO LABS. C/O DRY MOUTH.F/U WITH COLON/EGD. C/O RT SIDE PAIN WORSENINGWELCOME TO MEDICARE -- 6 WEEK F/U W LABS.WELCOME TO MEDICARE -- 6 WEEK F/U W LABS.3 WEEK F/U - US3 WEEK F/U - [facility]/O BRBPR LAST WK WITH DIARRHEA. NO BLOOD SINCEC/O BRBPR LAST WK WITH DIARRHEA. NO BLOOD SINCEPT HERE TODAY 3 WK F/U COLONOSCOPY AND LABS. PT HAS NO CONCERNS TODAYC/O BRBPR LAST WK WITH DIARRHEA. NO BLOOD SINCE Additional Source Comments INFORMATION SOURCE (unrecogn ized section and content) DATE CREATED AUTHOR AUTHOR'S ORGANIZ ATION 04/04/2019 [facility] DATE CREATED AUTHOR AUTHOR'S ORGANIZ ATION 07/03/2019 [facility] DATE CREATED AUTHOR AUTHOR'S ORGANIZ ATION 10/12/2020 [facility] DATE CREATED AUTHOR AUTHOR'S ORGANIZ ATION 10/26/2022 [employer] DATE CREATED AUTHOR AUTHOR'S ORGANIZ ATION 11/17/2022 [facility] DATE CREATED AUTHOR AUTHOR'S ORGANIZ ATION 11/24/2022 [facility] DATE CREATED AUTHOR AUTHOR'S ORGANIZ ATION [facility] DATE CREATED AUTHOR AUTHOR'S ORGANIZ ATION 04/18/2023 [facility] DATE CREATED AUTHOR AUTHOR'S ORGANIZ ATION 04/18/2023 [facility] DATE CREATED AUTHOR AUTHOR'S ORGANIZ ATION 05/11/2023 [facility] DATE CREATED AUTHOR AUTHOR'S ORGANIZ ATION 06/23/2023 [facility] DATE CREATED AUTHOR AUTHOR'S ORGANIZ ATION 06/23/2023 [facility] DATE CREATED AUTHOR AUTHOR'S ORGANIZ ATION 07/28/2023 [facility] DATE CREATED AUTHOR AUTHOR'S ORGANIZ ATION 08/20/2023 [facility] Source Comments (unrecognize d section and content) In the event this informatio n is protected by the Federal Confidentiality of Alcohol and Drug Abuse Patient Records regulations: The Federal rules restrict any use of the information to criminally investigate or prosecute any alcohol or drug abuse patient.[facility] Care Teams (unrecognized sec tion and content) Newspaper Vendor Relationship Specialty Start Date End Date Naa Machado MD [address] [place] [address] PCP - General 02/28/18 Naa Machado MD [address] [place] [address] PCP - [facility] Attributed Provider 01/12/22 Newspaper Vendor Relationship Specialty Start Date End Date Jax Boyd MD [address] [place] [phone] PCP - General Family Medicine 09/12/17 Newspaper Vendor Relationship Specialty Start Date End Date Naa Machado MD [address] [place] [address] PCP - General 02/28/18 Naa Machado MD [address] [place] [address] PCP - [facility] Attributed Provider 01/12/22 Carmen Schmitz, supervisor bottle house cleanersSurgical Coordinator 11/05/22 Newspaper Vendor Relationship Specialty Start Date End Date Jax Boyd MD [address] [place] [id number] PCP - General Family Medicine 09/12/17 Newspaper Vendor Relationship Specialty Start Date End Date Naa Machado MD [address] [place] [address] PCP - General 02/28/18 Naa Machado MD [address] [place] [address] PCP - [facility] Attributed Provider 01/12/22 Newspaper Vendor Relationship Specialty Start Date End Date Jax Boyd MD [address] [place] [address] PCP - General Family Medicine 09/12/17 Newspaper Vendor Relationship Specialty Start Date End Date Jax Boyd MD [address] [place] [address] PCP - General Family Medicine 09/12/17 Newspaper Vendor Relationship Specialty Start Date End Date Jax Boyd MD [address] [place] [address] PCP - General Family Medicine 09/12/17 Newspaper Vendor Relationship Specialty Start Date End Date Jax Boyd MD [address] [place] [address] PCP - General Family Medicine 09/12/17 Newspaper Vendor Relationship Specialty Start Date End Date Naa Machado MD [address] [place] [address] PCP - General 02/28/18 Naa Machado MD [address] [place] [address] PCP - [facility] Attributed Provider 01/12/22 Newspaper Vendor Relationship Specialty Start Date End Date Naa Machado MD [address] [place] [address] PCP - General 02/28/18 Naa Machado MD [address] [place] [address] PCP - [facility] Attributed Provider 01/12/22 Newspaper Vendor Relationship Specialty Start Date End Date Naa Machado MD [address] [place] [address] PCP - General 02/28/18 Naa Machado MD [address] [place] [address] PCP - [facility] Attributed Provider 01/12/22 Reason for Visit (unrecogniz ed section and content) Specialty Diagnoses / Procedures Referred By Contliz t Referred To Contact Primary Care Procedures Follow Up In Primary Care Naa Machado MD [address] [place] [address] Referral ID Status Reason Start Date Expiration Date Visits Re quested Visits Authorized [id number] Closed 09/24/2022 03/23/2023 1 1 Specialty Diagnoses / Procedures Referred By Contac t Referred To Contact Neurology Diagnoses Numbness and tingling of both feet Naa Machado MD [address] [place] [address] Maria Guadalupe Eugene MD [facility] Rachel Rachel [address] [address] Referral ID Status Reason Start Date Expiration Date V isits Requested Visits Authorized [id number] Pending Review 09/27/2022 09/27/2023 1 1 Reason Comments Follow-up 3 WEEK F/U. PATIENT HAD CHOLECYSTECTOMY 11/01/22. STILL HAS Reason Comments Foot Problem Patient states her f eet wake her up with pins and needle feeling. Tightness in toes and arches.she has been taking tylenol and soaking in Epsom salts. Reason Comments Medicare Annual Wellness Visit Subsequen t MEDICARE WELLNESS + 4 MONTH F/U + LABSPT STATES SHE SLID ON THE FLOOR WHILE MAKING CHOCOLATE AND HURT HER LEFT ELBOW February AND STILL IS HAVING PAIN C/O HAVING EXTREME LOSE STOOLS SINCE HER GALLBLADDER SURGERY IN OCTOBER. Reason Comments Follow-up Follow up neuropathy . Gabapentin has helped some Reason Comments Follow-up Patient is here for a follow up after pain management. She has an appointment with Dr Nicolas Frankel at [facility]. Reason Comments Follow-up 2 MONTH F/U XRAY LEF T ELBOW, MAMMOGRAM, DEXA BONE DENSITY. C/O BACK PAIN S/P FALL IN FEBRUARY 2023 - SCHEDULED FOR MRI SPINE IN JULY. C/O CHRONIC DIARRHEA SINCE CHOLECYSTECTOMY AND DECREASED Reason Comments Follow-up Patient presents for check up. Patient had canceled surgery right foot. Patient states that she feels she has too much going on right now. Specialty Diagnoses / Procedures Referred By Vick ng Referred To Contact Diagnoses Noninfective gastroenteritis and colitis, unspecified Acquired absence of other specified parts of digestive tract Gastro-esophageal reflux disease without esophagitis Anorexia Procedures WY COLONOSCOPY FLX DX W/COLLJ SPEC WHEN PFRMD WY COLSC FLX W/RMVL OF TUMOR POLYP LESION SNARE TQ WY COLONOSCOPY W/BIOPSY SINGLE/MULTIPLE WY COLSC FLX W/REMOVAL LESION BY HOT BX FORCEPS [id number] [address] [facility] [address] [place] [address] [phone] Referral ID Status Reason Start Date Expiration Date Visits Re quested Visits Authorized 1 1 Specialty Diagnoses / Procedures Referred By Contact Referred To Contact Gastroenterology Diagnoses GERD (gastroesophageal reflux disease) Procedures EGD WY ESOPHAGOGASTRODUODENOSCOPY TRANSORAL DIAGNOSTIC WY EGD TRANSORAL BIOPSY SINGLE/MULTIPLE Areli Arvizu MD [address] [facility] [place] [address] Referral ID Status Reason Start Date Expiration Date V isits Requested Visits Authorized [id number] Pending Review 08/02/2023 08/01/2024 1 1 FOR RECORDS PERTAINING TO PATIENTS WHO ARE OR HAVE BEEN ENROLLED IN A CHEMICAL DEPENDENCY/SUBSTANCEABUSE PROGRAM, SOME INFORMATION MAY BE OMITTED. This clinical summary was aggregated from multiple sources. Caution should be exercised in using it in the provision of clinical care. This summary normalizes information from multiple sources, and as a consequence, information in this document may materially change the coding, format and clinical context of patient data. In addition, data may be omitted in some cases. CLINICAL DECISIONS SHOULD BE BASED ON THE PRIMARY CLINICAL RECORDS. [facility] [employer] provides no warranty or guarantee of the accuracy or completeness of information in this document.
--- NOTE | 2023-09-16 07:32 | MRI_ITS ---
STUDY: MRI CERVICAL SPINE WITHOUT CONTRAST REASON FOR EXAM: Female, 68 years old. Right neck pain with bilateral arm numbness. Fall injury on 02/2023. TECHNIQUE: Standardized fat and water weighted pulse sequences were obtained in the sagittal and axial planes. COMPARISON: None FINDINGS: Normal foramen magnum and brainstem-cervical cord junction. Normal craniovertebral junction. Normal anterior atlantoaxial articulation. Normal odontoid process. Normal cervical lordosis. Normal vertebral bodies and posterior osseous elements. C2-3: Normal endplates. Normal disc height, signal and morphology. Normal central canal and intervertebral neural foramina. C3-4: Normal endplates. Normal disc height and morphology. Normal central canal and right intervertebral neural foramen. Moderately pronounced stenosis of the left intervertebral neural foramen due to pronounced left degenerative facet arthropathy. C4-5: Normal endplates. Minimal disc space height narrowing. Mild degenerative anterolisthesis of C4 on C5. Normal central canal and intervertebral neural foramina. C5-6: Normal endplates. Normal disc height. Minimal ventral extradural defect due to tiny posterior bulging annulus. Normal central canal and intervertebral neural foramina. C6-7: Normal endplates. Normal disc height. Mild ventral extradural defect due to posterior marginal spurs. Normal central canal and intervertebral neural foramina. C7-T1: Normal endplates. Normal disc height, signal and morphology. Normal central canal and intervertebral neural foramina. T1-T2, T2-3, T3-T4, T4-5 and T5-T6: (Sagittal only). Normal endplates. Normal disc height and morphology. Normal central canal and intervertebral neural foramina. Normal cervical cord. Normal upper thoracic spinal cord. Normal included portions of the brainstem and cerebellum. Normal midline pituitary gland. Normal visualized soft tissue structures. MRI/Spine Cervical (Routine) IMPRESSION: 1. 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 2. Mild degenerative anterolisthesis of C4 on C5. 3. Small C5-C6 posterior bulging annulus. 4. Mild ventral extradural defect at C6-C7 disc space level due to posterior marginal spurs. 5. No MRI evidence of cervical extruded disc fragment or cervical disc protrusion. 6. Normal cervical spinal cord. Electronically Signed: Oliver García MD at 9:09 EST ,
== END | disposition home or self-care (01) ==
LOC: MRI 07:18
PROVIDERS: PCP Internal Medicine; Referring Provider Orthopaedic Surgery Orthopaedic Surgery of the Spine; Visit Provider Orthopaedic Surgery Orthopaedic Surgery of the Spine
DX: G95.9 Disease of spinal cord, unspecified (principal)
CPT/HCPCS: 72141